=== PATIENT | female | born 2000 | race Caucasian/White ===

== ENCOUNTER 2020-11-15 11:49 | Emergency (ER) | payer OTHER, SELFPAY ==
[2020-11-15 12:00] VITALS: BP 140/64; PULSE 90; RESP 16; TEMP 36.7; O2SAT 98
[2020-11-15 12:15] VITALS: BP 140/64; PULSE 90; RESP 16; TEMP 36.7; O2SAT 98
--- NOTE | 2020-11-15 12:40 | ED.DENTAL ---
HPI - Dental/Oral General Chief complaint: Skin/Abscess/Foreign Body Stated complaint: Blister Time Seen by Provider: 11/15/20 12:31 Source: patient and RN notes reviewed Mode of arrival: ambulatory Limitations: no limitations History of Present Illness HPI Narrative: Patient presents today with a blister to the roof of her mouth x1 week. States it is very painful. Reports it is not growing or shrinking. Reports that possibly her tongue ring had been rubbing friction against the roof of her mouth, causing the area to grow. She has since removed the tongue ring. She has been using Orajel, Tylenol, ibuprofen, and a numbing mouthwash without much relief. Denies history of herpes or cold sores. Related Data Allergies Allergy/AdvReac Type Severity Reaction Status Date / Time Sulfa (Sulfonamide Allergy Unknown EYES SWELL Verified 11/15/20 12:14 Antibiotics) latex Allergy Rash Verified 11/15/20 12:14 Bumble Bee Allergy Unknown CANT Uncoded 05/29/20 13:20 BREATHE Wasp Allergy Unknown CANT Uncoded 05/29/20 13:20 BREATHE Review of Systems Review of Systems: Narrative: CONSTITUTIONAL: Denies body aches, fever, chills, or sweats. EYES: Denies visual changes, redness, or discharge. ENT: Denies rhinorrhea, congestion, sore throat, or otalgia. + mouth sore CARDIOVASCULAR: Denies chest pain, palpitations, or edema. RESPIRATORY: Denies cough or dyspnea. GASTROINTESTINAL: Denies abdominal pain, nausea, vomiting, or diarrhea. GENITOURINARY: Denies dysuria or hematuria. SKIN: Denies rash, itching, or wounds. MUSCULOSKELETAL: Denies back pain, joint pain, or myalgia. NEUROLOGIC: Denies headache, numbness, tingling, or weakness. PSYCH: Denies depression or anxiety. [facility] Past Medical History Medical History (Updated 11/15/20 @ 12:47 by Carmen Harvey, [facility], ) Allergies Anxiety Cyst of right ovary Depression GERD (gastroesophageal reflux disease) H/O migraine Tonsillectomy planned Vaginal delivery 11/07/17 Full term male 7lbs 2oz Surgical History Surgical History H/O adenoidectomy History of ankle surgery History of cholecystectomy Family History Family History Mother Asthma Anxiety GERD (gastroesophageal reflux disease) Migraines Panic attack Father Asthma ADHD Bipolar 1 disorder Grandparent Diabetes mellitus Bipolar 1 disorder Heart disease Lupus Grandparent GERD (gastroesophageal reflux disease) Alzheimer disease Dementia Sibling Autism Bipolar 1 disorder Schizophrenia Social History Social History Smoking status: Never smoker Alcohol intake: current Substance use: never Comments At time of signature, I have reviewed and agree with nursing past medical, surgical, social and family history unless otherwise noted. Please see nursing chart for further information. There is no relevant family history pertinent to the presenting complaint Exam Narrative: Exam Narrative: GENERAL: Well-appearing, well-nourished, and in no acute distress. HEAD: Normocephalic, atraumatic. EYES: EOMI. No redness or drainage. Conjunctivae normal. ENT: Mucous membranes pink and moist. Nares clear. No rhinorrhea. Throat normal. Uvula midline. 3 x 2 cm erythematous ulceration to the roof of the mouth at the hard palate with surrounding 1 x 2 cm area of localized tenderness and edema that is not erythematous. This area does not seem fluctuant. NECK: Normal AROM. Supple. No lymphadenopathy. CHEST: No respiratory distress. Clear to auscultation. HEART: Regular rate and rhythm. No murmur appreciated. Normal peripheral pulses. EXTREMITIES: Normal range of motion. No edema. SKIN: Warm, dry, no rash. Capillary refill normal. Normal skin turgor. NEURO: No focal deficits. Alert and oriented x3. Gait steady. P
== END 2020-11-15 12:52 | disposition home or self-care (01) ==
PROVIDERS: Emergency Provider Nurse Practitioner
DX: K12.0 Recurrent oral aphthae (principal); K21.9 Gastro-esophageal reflux disease without esophagitis
CPT/HCPCS: 99213; G0463

== ENCOUNTER 2020-12-25 10:48 | Emergency (ER) | payer OTHER, SELFPAY ==
--- NOTE | ~2020-12-25 | XR_ITS ---
EXAMINATION: XR ankle LT min 3V EXAM DATE: 12/25/2020 11:21 INDICATION: Initial encounter following injury, with pain of the left ankle. History of surgery for A chilles tendon and prior lateral malleolar fracture. TECHNIQUE: Left ankle frontal, lateral and oblique projections obtained and reviewed. There is no pr ior study for comparison. FINDINGS: The left ankle mortise appears intact. There are no acute fractures or dislocations ident ified. There is no subcutaneous gas. The soft tissue is unremarkable. There are no radiopaque for eign bodies. IMPRESSION: 1. Unremarkable XR ankle LT min 3V exam. Reviewed, dictated and finalized at location B.
--- NOTE | 2020-12-25 10:51 | ED.LOWEXIN ---
HPI - Extremity Injury (Lower) General Chief Complaint: Extremity Injury, Lower Stated Complaint: left knee and ankle injury Time Seen by Provider: 12/25/20 10:51 Source: patient and RN notes reviewed History of Present Illness HPI Narrative: Patient is a 20-year-old female who presents the urgent care with complaints of left knee and left ankle pain. Patient states that she was climbing in the [place] yesterday and slipped and fell on a rock landing on her left knee. Patient states that the knee hurts only with some weightbearing activity however the ankle has had a past severe fracture with 32 stitches due to a laceration. Patient states that it has been swelling off and on ever since the surgery a couple years ago. Patient states it is more painful with weightbearing and flexion. Denies of any use of [id number] medication and states that it just started hurting this morning rather than directly after the fall. No other acute complaints. No other acute injuries from the fall. Denies hitting her head or any loss of consciousness. No acute distress noted. Patient aware of the plan of care. Some parts of this dictation were generated by voice recognition software and may contain typographical and/or grammatical inaccuracies. Related Data Allergies Allergy/AdvReac Type Severity Reaction Status Date / Time Sulfa (Sulfonamide Allergy Unknown EYES SWELL Verified 12/25/20 11:11 Antibiotics) latex Allergy Rash Verified 12/25/20 11:11 Bumble Bee Allergy Unknown CANT Uncoded 05/29/20 13:20 BREATHE Wasp Allergy Unknown CANT Uncoded 05/29/20 13:20 BREATHE Review of Systems Review of Systems: Narrative: CONSTITUTIONAL: Denies fever, chills, or sweats. EYES: Denies visual changes, redness, or discharge. ENT: Denies rhinorrhea, congestion, sore throat, or otalgia. CARDIOVASCULAR: Denies chest pain, palpitations, or edema. RESPIRATORY: Denies cough or dyspnea. GASTROINTESTINAL: Denies abdominal pain, nausea, vomiting, or diarrhea. GENITOURINARY: Denies dysuria or hematuria. SKIN: Denies rash or itching. MUSCULOSKELETAL: Reports of left knee and left ankle pain NEUROLOGIC: Denies headache, numbness, or weakness. All other systems reviewed are negative, except as documented in HPI. [facility] Past Medical History Medical History (Updated 12/25/20 @ 11:35 by MIGUEL Holden) Allergies Anxiety Cyst of right ovary Depression GERD (gastroesophageal reflux disease) H/O migraine Tonsillectomy planned Vaginal delivery 11/07/17 Full term male 7lbs 2oz Surgical History Surgical History H/O adenoidectomy History of ankle surgery History of cholecystectomy Family History Family History Mother Asthma Anxiety GERD (gastroesophageal reflux disease) Migraines Panic attack Father Asthma ADHD Bipolar 1 disorder Grandparent Diabetes mellitus Bipolar 1 disorder Heart disease Lupus Grandparent GERD (gastroesophageal reflux disease) Alzheimer disease Dementia Sibling Autism Bipolar 1 disorder Schizophrenia Social History Social History Smoking status: Never smoker Alcohol intake: current Substance use: never Comments At the time of my signature, I reviewed and agree with the nursing past medical, surgical, social, and family history. There is no relevant family history pertinent to the patient complaint. Exam Narrative: Exam Narrative: GENERAL: This is a well-nourished, well-developed patient, in no apparent distress. HEAD: normocephalic, atraumatic. EYES: PERRL. Sclera clear/white. Vision is grossly intact. EARS: External ears normal NOSE: External nose normal with no obvious nasal discharge, nares without redness, no rhinorrhea. THROAT: Mucous membranes moist NECK: Neck supple SKIN: warm
[2020-12-25 11:01] VITALS: BP 126/68; PULSE 96; RESP 18; TEMP 36.8; O2SAT 100
== END 2020-12-25 11:35 | disposition home or self-care (01) ==
PROVIDERS: Emergency Provider Nurse Practitioner Family
DX: S93.402A Sprain of unspecified ligament of left ankle, initial encounter (principal); W17.89XA Other fall from one level to another, initial encounter; Y93.31 Activity, mountain climbing, rock climbing and wall climbing; K21.9 Gastro-esophageal reflux disease without esophagitis
CPT/HCPCS: 73610; 99213; G0463

== ENCOUNTER 2021-02-27 15:02 | Outpatient (CLI) | payer OTHER, SELFPAY ==
[2021-02-27 19:00] LABS: Basophils Absolute Auto 0.1 K/mm3 (0.0-0.1); Eosinophils Absolute Auto 0.1 K/mm3 (0-0.3); Eosinophils Percent Auto 2.2 % (0-4.4); Hematocrit 42.8 % (37.0-47.0); Hemoglobin 14.7 g/dL (12.0-15.0); Immature Granulocyte Absolute 0.01 K/mm3 (0.00-0.031); Immature Granulocyte Percent A 0.2 % (0-0.5); Lymphocytes Absolute Auto 2.58 K/mm3 (0.9-3.2); Lymphocytes Percent Auto 43.4 % (18.3-44.2); Mean Corpuscular HGB Conc 34.3 g/dl (32-36); Mean Corpuscular Hemoglobin 28.9 pg (26-34); Mean Corpuscular Volume 84.3 fl (80-100); Mean Platelet Volume 9.4 fl (7.4-10.4); Monocytes Absolute Auto 0.4 K/mm3 (0.1-0.6); Monocytes Percent Auto 7.4 % (2.6-8.5); Neutrophils Absolute Auto 2.7 K/mm3 (1.3-6.7); Neutrophils Percent Auto 45.8 % (45.5-73.1); Platelet Count Result 314 k/mm3 (150-375); Red Blood Count 5.08 M/mm3 (4.2-5.4); Red Cell Distribution Width 11.9 % (11.5-14.5); White Blood Count 5.9 K/mm3 (4.5-10.0)
[2021-02-27 19:20] LABS: Alanine Aminotransferase 17 U/L (4-35); Albumin Level 4.5 g/dL (3.5-5.1); Alkaline Phosphatase 87 U/L (38-126); Anion Gap 8 mmol/L (8-16); Aspartate Amino Transferase 21 U/L (14-36); Bilirubin,Total 0.3 mg/dL (0.2-1.3); Blood Urea Nitrogen 8 mg/dL (7-17); Calcium 9.6 mg/dL (8.4-10.2); Carbon Dioxide 24 mmol/L (22-30); Chloride 108 mmol/L (98-107); Cholesterol 148 mg/dL (0-200); Estimated Glomerular Filt Rate > 60; Glucose 97 mg/dL (65-105); HDL Direct 39 mg/dL; Sodium 140 mmol/L (137-145); Triglycerides 82 mg/dL (<150)
[2021-02-27 19:23] LABS: Add Urine Microscopic? YES; Amorphous Sediment Urine Few; Appearance Urine Turbid (Clear); Bacteria Urine 1+ /hpf; Bilirubin Urine Negative (Negative); Blood Urine Negative (Negative); Color Urine Yellow (Yellow); Glucose Urine UA Negative (Negative); Ketones Urine Negative (Negative); Leukocyte Esterase Ur Trace LEU/UL (Negative); Mucus Urine Few /lpf; Nitrate Urine Negative (Negative); Protein Urine Negative (Negative); Specific Grav Ur 1.029 (1.001-1.035); Squamous Epithelial Cell Urine Moderate /hpf (Few); Urobilinogen Urine Negative mg/dL (<2.0)
[2021-02-27 19:31] LABS: LDL Cholesterol Direct 89 mg/dL
[2021-02-27 19:37] LABS: Vitamin D 25 Hydroxy 60.7 ng/mL
== END 2021-02-27 15:03 | disposition home or self-care (01) ==
PROVIDERS: PCP Family Medicine; Visit Provider Family Medicine
DX: J45.909 Unspecified asthma, uncomplicated (principal); Z13.9 Encounter for screening, unspecified; Z00.00 Encounter for general adult medical examination without abnormal findings
CPT/HCPCS: 36415; 80053; 80061; 81001; 82306; 84443; 85025

== ENCOUNTER 2021-03-15 12:08 | Outpatient (CLI) | payer OTHER, MEDICAID, SELFPAY ==
[2021-03-15 19:32] LABS: Add Urine Microscopic? YES; Appearance Urine Cloudy (Clear); Bacteria Urine Trace /hpf; Bilirubin Urine Negative (Negative); Blood Urine Negative (Negative); Calcium Oxalate Crystals Urine Present /hpf; Color Urine Yellow (Yellow); Glucose Urine UA Negative (Negative); Ketones Urine Negative (Negative); Leukocyte Esterase Ur Negative LEU/UL (NEGATIVE); Mucus Urine Few /lpf; Nitrate Urine Negative (Negative); Protein Urine Negative (Negative); RBC Urine 0-2 /hpf (0-2); Specific Grav Ur 1.028 (1.001-1.035); Squamous Epithelial Cell Urine Many /hpf (Few); Urobilinogen Urine Negative mg/dL (<2.0); WBC Urine 0-3 /hpf (0-3)
== END 2021-03-15 12:09 | disposition home or self-care (01) ==
PROVIDERS: PCP Family Medicine; Visit Provider Family Medicine
DX: R82.90 Unspecified abnormal findings in urine (principal)
CPT/HCPCS: 81001; 87077; 87086; 87088; 87186

== ENCOUNTER 2021-05-17 10:50 | Outpatient (CLI) | payer OTHER, MEDICAID, SELFPAY | END 2021-05-17 10:51 | disposition home or self-care (01) | PROVIDERS: PCP Family Medicine; Visit Provider Family Medicine | DX: N39.0 Urinary tract infection, site not specified (principal) | CPT/HCPCS: 87077; 87086; 87088 ==

== ENCOUNTER 2021-06-06 14:16 | Outpatient (CLI) | payer OTHER, MEDICAID, SELFPAY ==
--- NOTE | ~2021-06-06 | XR_ITS ---
XR ankle LT min 3V DATE: 06/06/2021 14:32 INDICATION: Left ankle pain. No recent injury. TECHNIQUE: 4 views COMPARISON: 12/25/2020 left ankle FINDINGS: No fracture or dislocation of the ankle or disruption of the ankle mortise. No periosteal r eaction or bone destruction. The joint space at the ankle is well preserved. IMPRESSION: No significant abnormality Reviewed, dictated and finalized at location B. IMPRESSION: No significant abnormality
== END 2021-06-06 14:17 | disposition home or self-care (01) ==
PROVIDERS: PCP Family Medicine; Visit Provider Family Medicine
DX: M25.572 Pain in left ankle and joints of left foot (principal)
CPT/HCPCS: 73610

== ENCOUNTER 2022-01-27 09:30 | Outpatient (CLI) | payer OTHER, MEDICAID, SELFPAY ==
[2022-01-27 20:19] LABS: Basophils Absolute Auto 0.1 K/mm3 (0.0-0.1); Basophils Percent Auto 1.3 % (0.2-1.2); Eosinophils Absolute Auto 0.2 K/mm3 (0-0.3); Eosinophils Percent Auto 2.8 % (0-4.4); Hematocrit 44.4 % (37.0-47.0); Hemoglobin 14.2 g/dL (12.0-15.0); Immature Granulocyte Absolute 0.01 K/mm3 (0.00-0.031); Immature Granulocyte Percent A 0.2 % (0-0.5); Lymphocytes Absolute Auto 2.07 K/mm3 (0.9-3.2); Lymphocytes Percent Auto 38.9 % (18.3-44.2); Mean Corpuscular Hemoglobin 28.7 pg (26-34); Mean Corpuscular Volume 89.9 fl (80-100); Mean Platelet Volume 9.9 fl (7.4-10.4); Monocytes Absolute Auto 0.5 K/mm3 (0.1-0.6); Neutrophils Absolute Auto 2.5 K/mm3 (1.3-6.7); Neutrophils Percent Auto 47.8 % (45.5-73.1); Platelet Count Result 293 k/mm3 (150-375); Red Blood Count 4.94 M/mm3 (4.2-5.4); Red Cell Distribution Width 12.2 % (11.5-14.5); White Blood Count 5.3 K/mm3 (4.5-10.0)
[2022-01-27 20:24] LABS: Alanine Aminotransferase 27 U/L (6-35); Albumin Level 4.4 g/dL (3.5-5.1); Alkaline Phosphatase 89 U/L (38-126); Anion Gap 7 mmol/L (8-16); Aspartate Amino Transferase 25 U/L (14-36); Bilirubin,Total 0.8 mg/dL (0.2-1.3); Blood Urea Nitrogen 9 mg/dL (7-17); Calcium 9.2 mg/dL (8.4-10.2); Carbon Dioxide 25 mmol/L (22-30); Chloride 105 mmol/L (98-107); Estimated Glomerular Filt Rate > 60; Glucose 89 mg/dL (65-110); Potassium 3.9 mmol/L (3.4-5.0); Sodium 137 mmol/L (137-145)
== END 2022-01-27 09:31 | disposition home or self-care (01) ==
PROVIDERS: PCP Family Medicine; Visit Provider Family Medicine
DX: R20.0 Anesthesia of skin (principal)
CPT/HCPCS: 36415; 80053; 82607; 85025

== ENCOUNTER 2022-03-09 16:07 | Emergency (ER) | payer OTHER, MEDICAID, SELFPAY ==
--- NOTE | ~2022-03-09 | XR_ITS ---
EXAM: XR foot RT min 3V DATE: 03/09/2022 16:35 HISTORY: PICTURE FRAME FELL ON TOP OF RT FOOT 03/09/22. PAIN. . COMPARISON: X-ray ankle 12/13/2018. FINDINGS: Normal mineralization. No fracture or dislocation. No lytic or blastic lesion. Joint space s are maintained. Moderate hallux valgus. No erosion or periosteal change. Soft tissues within normal limits. IMPRESSION: No acute osseous finding in the right foot. Reviewed, dictated and finalized at location K.
--- NOTE | 2022-03-09 16:13 | ED.LOWEXIN ---
HPI - Extremity Injury (Lower) General Chief Complaint: Extremity Injury, Lower Stated Complaint: Right Foot Injury Time Seen by Provider: 03/09/22 16:13 Source: patient and RN notes reviewed History of Present Illness HPI Narrative: Patient is a 21-year-old female who presents the urgent care with complaints of right foot pain. Patient states that a picture frame fell on her foot yesterday and she has been on her feet all day at work. Patient states that she has not done anything for her pain. No other acute complaints. No acute distress noted. Patient aware of the plan of care. Some parts of this dictation were generated by voice recognition software and may contain typographical and/or grammatical inaccuracies. Related Data Allergies Allergy/AdvReac Type Severity Reaction Status Date / Time Sulfa (Sulfonamide Allergy Unknown EYES SWELL Verified 03/09/22 16:22 Antibiotics) latex Allergy Rash Verified 03/09/22 16:22 Bumble Bee Allergy Unknown CANT Uncoded 01/27/22 08:58 BREATHE Wasp Allergy Unknown CANT Uncoded 01/27/22 08:58 BREATHE Review of Systems Review of Systems: CONSTITUTIONAL: Denies fever, chills, or sweats. EYES: Denies visual changes, redness, or discharge. ENT: Denies rhinorrhea, congestion, sore throat, or otalgia. CARDIOVASCULAR: Denies chest pain, palpitations, or edema. RESPIRATORY: Denies cough or dyspnea. GASTROINTESTINAL: Denies abdominal pain, nausea, vomiting, or diarrhea. GENITOURINARY: Denies dysuria or hematuria. SKIN: Denies rash or itching. MUSCULOSKELETAL: Reports of right foot pain NEUROLOGIC: Denies headache, numbness, or weakness. All other systems reviewed are negative, except as documented in HPI. [facility] Past Medical History Medical History Allergies Anxiety Cyst of right ovary Depression GERD (gastroesophageal reflux disease) H/O migraine Tonsillectomy planned Vaginal delivery 11/07/17 Full term male 7lbs 2oz Surgical History Surgical History H/O adenoidectomy History of ankle surgery History of cholecystectomy Family History Family History Mother Asthma Anxiety GERD (gastroesophageal reflux disease) Migraines Panic attack Father Asthma ADHD Bipolar 1 disorder Grandparent Diabetes mellitus Bipolar 1 disorder Heart disease Lupus Grandparent GERD (gastroesophageal reflux disease) Alzheimer disease Dementia Sibling Autism Bipolar 1 disorder Schizophrenia Social History Social History Smoking status: Never smoker Tobacco type: e-cigarettes/vaping Alcohol intake: current Alcohol use details: weekends Substance use: never Comments At the time of my signature, I reviewed and agree with the nursing past medical, surgical, social, and family history. There is no relevant family history pertinent to the patient complaint. Exam Narrative: GENERAL: This is a well-nourished, well-developed patient, in no apparent distress. HEAD: normocephalic, atraumatic. EYES: PERRL. Sclera clear/white. Vision is grossly intact. EARS: External ears normal NOSE: External nose normal with no obvious nasal discharge, nares without redness, no rhinorrhea. THROAT: Mucous membranes moist NECK: Neck supple CARDIOVASCULAR: Regular rate and rhythm without murmurs, gallops, or rubs. RESPIRATORY: Clear to auscultation. Breath sounds equal bilaterally. No wheezes, rales, or rhonchi. SKIN: warm, intact with no suspicious lesions or rash, good texture and turgor. NEURO: awake, alert, and oriented to person, place and time. There were no obvious focal neurologic abnormalities. EXTREMITIES: Mild ecchymosis noted to the right mid dorsal foot with superficial skin abrasion. No obvious deformity or fracture. Range of motion within normal limi
[2022-03-09 16:16] VITALS: BP 120/75; PULSE 80; RESP 14; TEMP 37; O2SAT 100
[2022-03-09 16:23] VITALS: BP 120/75; PULSE 80; RESP 14; TEMP 37; O2SAT 100
== END 2022-03-09 16:54 | disposition home or self-care (01) ==
PROVIDERS: Emergency Provider Nurse Practitioner Family; PCP Family Medicine
DX: S90.31XA Contusion of right foot, initial encounter (principal); W20.8XXA Other cause of strike by thrown, projected or falling object, initial encounter; K21.9 Gastro-esophageal reflux disease without esophagitis
CPT/HCPCS: 73630; 99213; G0463

== ENCOUNTER 2022-03-27 14:14 | Outpatient (CLI) | payer OTHER, MEDICAID, SELFPAY ==
--- NOTE | ~2022-03-27 | CT_ITS ---
EXAMINATION: CT abdomen pelvis wo con DATE: 03/27/2022 14:36 INDICATION: Severe left lower quadrant abdominal pain with hematemesis TECHNIQUE: Computed tomography (CT) of the abdomen and pelvis was performed without intravenous contr ast. Automated exposure control and iterative reconstruction technique were employed. The dose-length product was 611.24 mGy-cm. COMPARISON: None FINDINGS: Minimal dependent atelectasis in the bilateral lower lobes. Heart size is normal. No pericardial or p leural effusion. Cholecystectomy clips the gallbladder fossa with dropped clip along the proximal tra nsverse colon. Liver, spleen, pancreas, bilateral adrenal glands and kidneys are normal. Bowels inclu ding the appendix are normal. Bladder, uterus and bilateral adnexa are unremarkable. Minimal likely p hysiologic free fluid in the cul-de-sac. No abscess or free intraperitoneal gas. No pathologically en larged abdominal or pelvic lymphadenopathy. Bones are unremarkable. IMPRESSION: 1. Minimal likely physiologic free fluid in the cul-de-sac. No acute intra-abdominal/pelvic process. Reviewed, dictated and finalized at location A. IMPRESSION: 1. Minimal likely physiologic free fluid in the cul-de-sac. No acute intra-abdo rachid/pelvic process.
== END 2022-03-27 14:15 | disposition home or self-care (01) ==
PROVIDERS: PCP Family Medicine; Visit Provider Family Medicine
DX: K92.0 Hematemesis (principal); R10.32 Left lower quadrant pain
CPT/HCPCS: 74176

== ENCOUNTER 2022-05-15 14:32 | Emergency (ER) | payer MEDICAID, SELFPAY ==
--- NOTE | 2022-05-15 14:37 | ED.DIZZY ---
HPI - Dizziness General Chief Complaint: Dizziness Stated Complaint: dizzy light headed and sob Time Seen by Provider: 05/15/22 14:38 Source: patient and RN notes reviewed History of Present Illness HPI Narrative: Patient is a 22-year-old female who presents the urgent care with complaints of lightheadedness, dizziness, cough, runny nose, mild sore throat and epigastric pain. Patient states that symptoms started 3 days ago and she is concerned of COVID considering she lives with her grandmother father. Patient denies of any nausea or vomiting. States that she has had low-grade fevers. Patient has been using Tylenol cold and flu medication as well as ibuprofen. Denies any ill exposures. No other acute complaints. No acute distress noted. Patient aware of the plan of care. Some parts of this dictation were generated by voice recognition software and may contain typographical and/or grammatical inaccuracies. Related Data Allergies Allergy/AdvReac Type Severity Reaction Status Date / Time Sulfa (Sulfonamide Allergy Unknown EYES SWELL Verified 05/15/22 14:46 Antibiotics) grass pollen Allergy Hives Verified 05/15/22 14:46 latex Allergy Rash Verified 05/15/22 14:46 Bumble Bee Allergy Unknown CANT Uncoded 05/15/22 14:46 BREATHE Wasp Allergy Unknown CANT Uncoded 05/15/22 14:46 BREATHE Review of Systems Review of Systems: CONSTITUTIONAL: Reports a fever EYES: Denies visual changes, redness, or discharge. ENT: Reports of congestion, rhinorrhea, mild sore throat CARDIOVASCULAR: Denies chest pain, palpitations, or edema. RESPIRATORY: Denies cough or dyspnea. GASTROINTESTINAL: Reports of epigastric pain GENITOURINARY: Denies dysuria or hematuria. SKIN: Denies rash or itching. MUSCULOSKELETAL: Denies back pain, joint pain, or myalgia. NEUROLOGIC: Denies headache, numbness, or weakness. Reports of dizziness All other systems reviewed are negative, except as documented in HPI. [facility] Past Medical History Medical History Allergies Anxiety Cyst of right ovary Depression GERD (gastroesophageal reflux disease) H/O migraine Tonsillectomy planned Vaginal delivery 11/07/17 Full term male 7lbs 2oz Surgical History Surgical History H/O adenoidectomy History of ankle surgery History of cholecystectomy Family History Family History Mother Asthma Anxiety GERD (gastroesophageal reflux disease) Migraines Panic attack Father Asthma ADHD Bipolar 1 disorder Grandparent Diabetes mellitus Bipolar 1 disorder Heart disease Lupus Grandparent GERD (gastroesophageal reflux disease) Alzheimer disease Dementia Sibling Autism Bipolar 1 disorder Schizophrenia Social History Social History Smoking status: Never smoker Tobacco type: e-cigarettes/vaping Alcohol intake: current Alcohol use details: weekends Substance use: never Comments At the time of my signature, I reviewed and agree with the nursing past medical, surgical, social, and family history. There is no relevant family history pertinent to the patient complaint. Exam Narrative: GENERAL: This is a well-nourished, well-developed patient, in no apparent distress. HEAD: normocephalic, atraumatic. EYES: PERRL. Sclera clear/white. Vision is grossly intact. EARS: External ears normal, auditory canals clear and without drainage, TMs normal without perforation. Hearing grossly intact. NOSE: External nose normal with no obvious nasal discharge, nares without redness, no rhinorrhea. THROAT: Mucous membranes moist, posterior pharynx clear. Mild postnasal drainage NECK: Neck supple, non-tender without lymphadenopathy CARDIOVASCULAR: Regular rate and rhythm without murmurs, gallops, or rubs. RESPIRATORY: Clear to auscultation. B
[2022-05-15 14:39] VITALS: BP 115/74; PULSE 82; RESP 18; TEMP 36.8; O2SAT 100
[2022-05-15 18:51] LABS: SARS-CoV-2 RNA PCR Negative
== END 2022-05-15 15:17 | disposition home or self-care (01) ==
PROVIDERS: Emergency Provider Nurse Practitioner Family; PCP Family Medicine
DX: R10.13 Epigastric pain (principal); J06.9 Acute upper respiratory infection, unspecified; Z20.822 Contact with and (suspected) exposure to COVID-19; K21.9 Gastro-esophageal reflux disease without esophagitis
CPT/HCPCS: 87804; 99213; C9803; G0463; U0003; U0005

== ENCOUNTER 2022-08-27 15:24 | Outpatient (CLI) | payer OTHER, SELFPAY ==
--- NOTE | ~2022-08-27 | XR_ITS ---
XR abdomen obstructive series DATE: 08/27/2022 15:34 INDICATION: Left lower quadrant abdominal pain for 4 days, radiating to back TECHNIQUE: Supine and upright AP views of the abdomen COMPARISON: 03/27/2022 CT abdomen pelvis FINDINGS: Surgical clips, right upper quadrant, consistent with cholecystectomy. No evidence of bowel obstruction or intraperitoneal free air. The psoas shadows are intact. No viscer omegaly is evident. There is mild dextroscoliosis of the lower thoracic and lumbar spine. IMPRESSION: Status post cholecystectomy No evidence of bowel obstruction or free air Reviewed, dictated and finalized at Location A. Reviewed, dictated and finalized at location B. H PRESS FEEDER
== END 2022-08-27 15:25 | disposition home or self-care (01) ==
LOC: ANHBWCIMG 15:25
PROVIDERS: PCP Family Medicine; Visit Provider Family Medicine
DX: R10.32 Left lower quadrant pain (principal)
CPT/HCPCS: 74019

== ENCOUNTER 2022-09-18 13:31 | Outpatient (CLI) | payer OTHER, SELFPAY ==
--- NOTE | ~2022-09-18 | XR_ITS ---
EXAMINATION: XR chest 2V 09/18/2022 13:55 INDICATION: Chronic GI issues. Dyspnea. PROCEDURE: PA and lateral views of the chest COMPARISON: No prior studies for comparison. FINDINGS: The lungs are clear. The cardiomediastinal silhouette is within normal limits. There are no pleural effusions. There is no pneumothorax suspected. IMPRESSION: 1: NO ACUTE CARDIOPULMONARY DISEASE. Reviewed, dictated and finalized at location A. TH AND SAFETY REPRESENTATIVE
--- NOTE | ~2022-09-18 | XR_ITS ---
EXAMINATION: XR abdomen obstructive series DATE: 09/18/2022 13:55 INDICATION: Chronic GI issues. TECHNIQUE: Supine and upright views of the abdomen. FINDINGS: 08/27/2022 The visualized lung parenchyma is normal.. There is a nonobstructive bowel gas pattern. Gas and stool are seen throughout the colon to the level of the rectum. There is no free air. Moderate colonic fe froilan loading. There are cholecystectomy clips. IMPRESSION: 1. No acute abdominal abnormality. Reviewed, dictated and finalized at location A. HT NURSE
[2022-09-18 20:25] LABS: Alanine Aminotransferase 30 U/L (6-35); Albumin Level 4.3 g/dL (3.5-5.1); Alkaline Phosphatase 90 U/L (38-126); Anion Gap 7 mmol/L (8-16); Aspartate Amino Transferase 33 U/L (14-36); Bilirubin,Total 0.5 mg/dL (0.2-1.3); Blood Urea Nitrogen 9 mg/dL (7-17); Calcium 8.9 mg/dL (8.4-10.2); Carbon Dioxide 27 mmol/L (22-30); Chloride 105 mmol/L (98-107); Estimated Glomerular Filt Rate > 60; Glucose 100 mg/dL (65-110); Lipase 77 U/L (23-300); Potassium 4.1 mmol/L (3.4-5.0); Sodium 139 mmol/L (137-145)
[2022-09-18 20:38] LABS: SPREG INTERNAL CONTROL Positive; Serum Qual hCG Negative
== END 2022-09-18 13:32 | disposition home or self-care (01) ==
LOC: ANHBWCLAB 13:32
PROVIDERS: PCP Family Medicine; Visit Provider Family Medicine
DX: R10.32 Left lower quadrant pain (principal); Z87.19 Personal history of other diseases of the digestive system; K92.0 Hematemesis
CPT/HCPCS: 36415; 71046; 74019; 80053; 83690; 84703

== ENCOUNTER 2023-01-07 07:45 | Outpatient (CLI) | payer OTHER, SELFPAY ==
[2023-01-07 19:46] LABS: Basophils Absolute Auto 0.1 K/mm3 (0.0-0.1); Basophils Percent Auto 1.1 % (0.2-1.2); Eosinophils Absolute Auto 0.2 K/mm3 (0-0.3); Eosinophils Percent Auto 2.8 % (0-4.4); Hemoglobin 14.8 g/dL (12.0-15.0); Immature Granulocyte Absolute 0.01 K/mm3 (0.00-0.031); Immature Granulocyte Percent A 0.2 % (0-0.5); Lymphocytes Absolute Auto 2.96 K/mm3 (0.9-3.2); Lymphocytes Percent Auto 46.1 % (18.3-44.2); Mean Corpuscular HGB Conc 32.9 g/dl (32-36); Mean Corpuscular Hemoglobin 29.3 pg (26-34); Mean Corpuscular Volume 89.1 fl (80-100); Mean Platelet Volume 9.4 fl (7.4-10.4); Monocytes Absolute Auto 0.4 K/mm3 (0.1-0.6); Monocytes Percent Auto 6.9 % (2.6-8.5); Neutrophils Absolute Auto 2.8 K/mm3 (1.3-6.7); Neutrophils Percent Auto 42.9 % (45.5-73.1); Platelet Count Result 331 k/mm3 (150-375); Red Blood Count 5.05 M/mm3 (4.2-5.4); Red Cell Distribution Width 12.5 % (11.5-14.5); White Blood Count 6.4 K/mm3 (4.5-10.0)
[2023-01-07 20:59] LABS: LDL Cholesterol Direct 89 mg/dL
[2023-01-07 21:11] LABS: Alanine Aminotransferase 23 U/L (6-35); Albumin Level 4.5 g/dL (3.5-5.1); Alkaline Phosphatase 86 U/L (38-126); Anion Gap 9 mmol/L (8-16); Aspartate Amino Transferase 68 U/L (14-36); Bilirubin,Total 0.6 mg/dL (0.2-1.3); Blood Urea Nitrogen 13 mg/dL (7-17); Calcium 9.1 mg/dL (8.4-10.2); Carbon Dioxide 28 mmol/L (22-30); Chloride 105 mmol/L (98-107); Cholesterol 150 mg/dL (0-200); Estimated Glomerular Filt Rate > 60; Glucose 85 mg/dL (65-110); HDL Direct 43 mg/dL; Potassium 3.8 mmol/L (3.4-5.0); Sodium 142 mmol/L (137-145); Triglycerides 74 mg/dL (<150)
== END 2023-01-07 07:46 | disposition home or self-care (01) ==
LOC: ANHBWCLAB 07:46
PROVIDERS: PCP Family Medicine; Visit Provider Nurse Practitioner
DX: G43.909 Migraine, unspecified, not intractable, without status migrainosus (principal); J45.909 Unspecified asthma, uncomplicated; R11.0 Nausea; E66.9 Obesity, unspecified; R53.83 Other fatigue; K21.9 Gastro-esophageal reflux disease without esophagitis; F41.9 Anxiety disorder, unspecified; Z13.9 Encounter for screening, unspecified
CPT/HCPCS: 36415; 80053; 80061; 84443; 85025

== ENCOUNTER 2023-04-07 13:39 | Outpatient (CLI) | payer OTHER, SELFPAY ==
--- NOTE | ~2023-04-07 | XR_ITS ---
EXAMINATION: XR ankle LT 2V DATE: 04/07/2023 13:53 INDICATION: Left ankle pain. TECHNIQUE: 2 views of left ankle were obtained. COMPARISON: Left ankle radiographs 06/06/2021 FINDINGS: Bone alignment is normal. No fracture. Joint spaces are normal. IMPRESSION: 1. Normal left ankle. Reviewed, dictated and finalized at location A. IMPRESSION: 1. Normal left ankle.
[2023-04-13 04:53] LABS: Immunoglobulin A 64 mg/dL (47-310); TTG IGA AB <1.0 U/mL (<15.0)
== END 2023-04-07 13:40 | disposition home or self-care (01) ==
LOC: ANHBWCLAB 13:40
PROVIDERS: PCP Nurse Practitioner Adult Health; Visit Provider Nurse Practitioner Adult Health
DX: M25.572 Pain in left ankle and joints of left foot (principal); K21.9 Gastro-esophageal reflux disease without esophagitis; K90.49 Malabsorption due to intolerance, not elsewhere classified
CPT/HCPCS: 36415; 73600; 82784; 86003; 86364

== ENCOUNTER 2023-05-06 08:51 | Outpatient (CLI) | payer OTHER, SELFPAY ==
--- NOTE | ~2023-05-06 | XR_ITS ---
XR knee RT 3V 05/06/2023 09:02 INDICATION: Right knee pain for 2 weeks. Bruising. No known injury. PROCEDURE: 3 views right knee COMPARISON: No prior studies for comparison. FINDINGS: Fracture, dislocation or subluxation is not identified. No significant joint effusion. The soft tissues appear within normal limits. No foreign bodies are identified. IMPRESSION: 1: NO ACUTE BONE OR JOINT ABNORMALITY IDENTIFIED. Reviewed, dictated and finalized at location B.
== END 2023-05-06 08:52 | disposition home or self-care (01) ==
PROVIDERS: PCP Nurse Practitioner Adult Health; Visit Provider Nurse Practitioner Adult Health
DX: M25.561 Pain in right knee (principal)
CPT/HCPCS: 73562

== ENCOUNTER 2023-05-30 14:03 | Emergency (ER) | payer OTHER, SELFPAY ==
[2023-05-30 14:15] VITALS: BP 126/79; PULSE 93; RESP 18; TEMP 37.3; O2SAT 98
--- NOTE | 2023-05-30 14:49 | ED.GENADULT ---
HPI - General Adult General Chief complaint: Upper Respiratory Infection Stated complaint: congestion/sob/aches and pains Source: patient Mode of arrival: ambulatory Limitations: no limitations History of Present Illness HPI narrative: Patient presents for evaluation of sick symptoms for last 3-4 days. Symptoms include cough, headache, generalized body aches, ear pressure, sore throat, nausea, sinus congestion, rhinorrhea and tearing of the eyes. Denies fever. No recent sick contacts to her knowledge. She has some chronic left ear pain, not worse from her baseline. She has tried taking several lyhm-bdf-hzxrjrx cough and cold medications without considerable improvement thereafter. Related Data Allergies Allergy/AdvReac Type Severity Reaction Status Date / Time Sulfa (Sulfonamide Allergy Unknown EYES SWELL Verified 05/30/23 14:19 Antibiotics) grass pollen Allergy Hives Verified 05/30/23 14:19 latex Allergy Rash Verified 05/30/23 14:19 Bumble Bee Allergy Unknown CANT Uncoded 05/06/23 08:39 BREATHE Wasp Allergy Unknown CANT Uncoded 05/06/23 08:39 BREATHE Review of Systems Review of Systems: CONSTITUTIONAL: Denies fever, chills, or sweats. EYES: Reports watering in the eyes. Denies visual changes and redness ENT: Reports sinus congestion, mild sore throat and rhinorrhea. CARDIOVASCULAR: Denies chest pain, palpitations, or edema. RESPIRATORY: Reports cough. Denies SOB GASTROINTESTINAL: Reports nausea. Denies abdominal pain, vomiting, or diarrhea. GENITOURINARY: Denies dysuria or hematuria. SKIN: Denies rash or itching. MUSCULOSKELETAL:Reports generalized body aches NEUROLOGIC:Reports headache. Denies numbness, dizziness, or weakness. PSYCHIATRIC: Denies anxiety or depression. [facility] Past Medical History Medical History Allergies Anxiety Cyst of right ovary Depression GERD (gastroesophageal reflux disease) H/O migraine Tonsillectomy planned Vaginal delivery 11/07/17 Full term male 7lbs 2oz Surgical History Surgical History H/O adenoidectomy History of ankle surgery History of cholecystectomy Family History Family History Mother Asthma Anxiety GERD (gastroesophageal reflux disease) Migraines Panic attack Father Asthma ADHD Bipolar 1 disorder Grandparent Diabetes mellitus Bipolar 1 disorder Heart disease Lupus Grandparent GERD (gastroesophageal reflux disease) Alzheimer disease Dementia Sibling Autism Bipolar 1 disorder Schizophrenia Social History Social History Smoking status: Current every day smoker Tobacco type: e-cigarettes/vaping Alcohol intake: current Alcohol use details: weekends Substance use: never Lack of Transportation: No Lack of Food: Never True Current Housing: I Have Housing Concerned About Future Housing: No Difficulty Paying Gas/Electric Bills: No Difficulty Paying for Meds: No Currently Unemployed: No Education: High School Diploma/GED Difficulty w/ Childcare or Family Care: No Living arrangements: with family Gender identity (if verbalized by the patient): Female Exam Narrative: GENERAL: Well-appearing, well-nourished, and in no acute distress. HEAD: Normocephalic, atraumatic. EYES: PERRLA and EOMI. ENT: Nares clear, no rhinorrhea or epistaxis. Mucous membranes moist. Oropharynx without tonsillar hypertrophy exudate or other lesions. Bilateral TMs pearly delgadillo nonbulging NECK: Supple. No adenopathy or masses. No carotid bruits or JVD CHEST: Clear to auscultation. No respiratory distress. No wheezes rales or rhonchi HEART: Regular rate and rhythm. No murmur heard. Normal peripheral pulses. ABDOMEN: Soft, nontender, nondistended, normal active bowel sounds.
== END 2023-05-30 15:35 | disposition home or self-care (01) ==
PROVIDERS: Emergency Provider Nurse Practitioner; PCP Family Medicine
DX: B34.9 Viral infection, unspecified (principal); Z20.822 Contact with and (suspected) exposure to COVID-19; K21.9 Gastro-esophageal reflux disease without esophagitis
CPT/HCPCS: 87081; 87426; 87804; 87880; 99213; C9803; G0463

== ENCOUNTER 2023-08-21 08:20 | Emergency (ER) | payer OTHER, SELFPAY ==
[2023-08-21 08:25] VITALS: BP 130/77; PULSE 98; RESP 18; TEMP 36.6; O2SAT 99
--- NOTE | 2023-08-21 08:32 | ED.GENADULT ---
HPI - General Adult General Chief complaint: Upper Respiratory Infection Stated complaint: nausea/dizzy/chest pain Time Seen by Provider: 08/21/23 08:33 Source: patient and RN notes reviewed Mode of arrival: ambulatory Limitations: no limitations History of Present Illness HPI narrative: 23-year-old female presents concern for 3 day history of vomiting throughout the day. She reports she has been having upper abdominal pain, bilateral. Reports the abdominal pain is constant and feels like she is getting punched in the stomach?. She reports history of pancreatitis as a child. She reports last year she was hospitalized for ?stomach issues?. She reports chills and sweats, has not taken her temperature. She reports taking a pill her grandpa gave her that helped her vomiting. She reports rhinorrhea, otherwise denies cough, sore throat, nasal congestion. She reports history of cholecystectomy, denies other abdominal surgeries. Related Data Allergies Allergy/AdvReac Type Severity Reaction Status Date / Time Sulfa (Sulfonamide Allergy Unknown EYES SWELL Verified 08/05/23 15:07 Antibiotics) grass pollen Allergy Hives Verified 08/05/23 15:07 latex Allergy Rash Verified 08/05/23 15:07 Bumble Bee Allergy Unknown CANT Uncoded 08/05/23 15:07 BREATHE Wasp Allergy Unknown CANT Uncoded 08/05/23 15:07 BREATHE Review of Systems Review of Systems: CONSTITUTIONAL: Reports chills, sweats ENT: Reports rhinorrhea. Denies congestion, sinus pain, otalgia or sore throat. CARDIOVASCULAR: Denies chest pain, palpitations, or edema. RESPIRATORY: Denies cough or dyspnea. GASTROINTESTINAL: Reports epigastric, upper abdominal pain, nausea, vomiting. Denies diarrhea, bloody or mucous stools. GENITOURINARY: Denies dysuria or hematuria. MUSCULOSKELETAL: Denies myalgia. NEUROLOGIC: Denies headache. All systems reviewed & are unremarkable except as noted in HPI and below PMFSH Past Medical History Medical History Allergies Anxiety Cyst of right ovary Depression GERD (gastroesophageal reflux disease) H/O migraine Tonsillectomy planned Vaginal delivery 11/07/17 Full term male 7lbs 2oz Surgical History Surgical History H/O adenoidectomy History of ankle surgery History of cholecystectomy Family History Family History Mother Asthma Anxiety GERD (gastroesophageal reflux disease) Migraines Panic attack Father Asthma ADHD Bipolar 1 disorder Grandparent Diabetes mellitus Bipolar 1 disorder Heart disease Lupus Grandparent GERD (gastroesophageal reflux disease) Alzheimer disease Dementia Sibling Autism Bipolar 1 disorder Schizophrenia Social History Social History Smoking status: Current every day smoker Tobacco type: e-cigarettes/vaping Alcohol intake: current Alcohol use details: weekends Substance use: never Lack of Transportation: No Lack of Food: Never True Current Housing: I Have Housing Concerned About Future Housing: No Difficulty Paying Gas/Electric Bills: No Difficulty Paying for Meds: No Currently Unemployed: No Education: High School Diploma/GED Difficulty w/ Childcare or Family Care: No Living arrangements: with family Gender identity (if verbalized by the patient): Female Comments At time of signature, agree with nursing past medical, surgical, social and family history. There is no relevant family history pertinent to the presenting complaint Exam Narrative: GENERAL: Nontoxic-appearing, well-nourished, and in no acute distress. HEAD: Normocephalic, atraumatic. EYES: PERRLA, conjunctivae clear, and EOMI. ENT: Nares clear. Mucous membranes moist. NECK: Supple. No lymphadenopathy CHEST: Speaks in full se
[2023-08-21] MEDS: ONDANSETRON HCL ODT 4 MG TABLET PO (08:44)
== END 2023-08-21 08:57 | disposition short-term general hospital (02) ==
LOC: EXPBETH 08:22
PROVIDERS: Emergency Provider Nurse Practitioner; PCP Family Medicine
DX: R10.9 Unspecified abdominal pain (principal); R11.10 Vomiting, unspecified; F17.290 Nicotine dependence, other tobacco product, uncomplicated; K21.9 Gastro-esophageal reflux disease without esophagitis
CPT/HCPCS: 81003; 99213; A9270; G0463

== ENCOUNTER 2024-01-12 14:11 | Outpatient (CLI) | payer OTHER, SELFPAY ==
[2024-01-12 18:47] LABS: Hemoglobin 15.1 g/dL (12.0-15.0); Mean Corpuscular HGB Conc 32.8 g/dl (32-36); Mean Corpuscular Hemoglobin 29.3 pg (26-34); Mean Corpuscular Volume 89.1 fl (80-100); Mean Platelet Volume 10.1 fl (7.4-10.4); Platelet Count Result 291 k/mm3 (150-375); Red Blood Count 5.16 M/mm3 (4.2-5.4); Red Cell Distribution Width 11.9 % (11.5-14.5); White Blood Count 5.2 K/mm3 (4.5-10.0)
[2024-01-12 19:02] LABS: Alanine Aminotransferase 33 U/L (6-35); Albumin Level 4.9 g/dL (3.5-5.1); Alkaline Phosphatase 68 U/L (38-126); Anion Gap 8 mmol/L (4-12); Aspartate Amino Transferase 72 U/L (14-36); Bilirubin,Total 0.6 mg/dL (0.2-1.3); Blood Urea Nitrogen 7 mg/dL (7-17); Calcium 9.4 mg/dL (8.4-10.2); Carbon Dioxide 25 mmol/L (22-30); Chloride 109 mmol/L (98-107); Cholesterol 131 mg/dL (0-200); Estimated Glomerular Filt Rate > 60; Glucose 110 mg/dL (65-110); HDL Direct 29 mg/dL; Sodium 142 mmol/L (137-145); Triglycerides 140 mg/dL (<150)
[2024-01-12 19:14] LABS: LDL Cholesterol Direct 77 mg/dL
[2024-01-12 19:28] LABS: Thyroid Stimulating Hormone 0.474 uIU/mL (0.465-4.680)
== END 2024-01-12 14:12 | disposition home or self-care (01) ==
LOC: ANHBWCLAB 14:13
PROVIDERS: PCP Nurse Practitioner Adult Health; Visit Provider Nurse Practitioner Adult Health
DX: Z13.9 Encounter for screening, unspecified (principal)
CPT/HCPCS: 36415; 80053; 80061; 84443; 85027

== ENCOUNTER 2024-02-23 10:32 | Outpatient (CLI) | payer OTHER, SELFPAY ==
[2024-02-23 19:50] LABS: Appearance Urine Turbid (Clear); Bacteria Urine 4+ /hpf; Blood Urine 3+ (Negative); Calcium Oxalate Crystals Urine Present /hpf; Color Urine Orange (Yellow); Glucose Urine UA Negative (Negative); Ketones Urine Negative (Negative); Leukocyte Esterase Ur 3+ LEU/UL (Negative); Need Manual Microscopic Reviewed; Protein Urine 2+ mg/dL (Negative); RBC Urine 51-100 /hpf (0-2); Specific Grav Ur 1.019 (1.001-1.035); Squamous Epithelial Cell Urine Many /hpf (Few); WBC Urine >100 /hpf (0-3); pH Urine 5.5 (5.0-9.0)
[2024-02-23 19:52] LABS: Add Urine Microscopic? YES
== END 2024-02-23 10:33 | disposition home or self-care (01) ==
LOC: ANHBWCLAB 10:33
PROVIDERS: PCP Nurse Practitioner Adult Health; Visit Provider Nurse Practitioner Adult Health
DX: R39.9 Unspecified symptoms and signs involving the genitourinary system (principal)
CPT/HCPCS: 81001; 87077; 87086; 87088; 87186

== ENCOUNTER 2024-12-13 10:08 | Outpatient (CLI) | payer OTHER, SELFPAY ==
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
--- OUTSIDE RECORDS SUMMARY | 2024-12-13 11:40 | XMS_ITS | Referral Summary ---
Author Organization [facility] Address [address] [place] [address] Care Team Providers Care Ethnology Teacher Name Role Phone Daniel Mcqueen MD Primary Care Provider [phone] Allergies Active Allergy Reactions Criticality Noted Date [...] (07/01/2018): Added automatically from request for surgery [id number] Assessment & Plan (10/27/2018 3:32 PM HEAT TREAT PULLER): The patient previously had constipation but since last March has been having 6 formed stools per day. There has been no bleeding. A colonoscopy is recommended to clarify the diagnosis and guide therapy. The risks, benefits, and alternatives were discussed with the patient and she agrees to proceed. Left lower quadrant pain 07/01/2018 Overview (07/01/2018): Added automatically from request for surgery [id number] Assessment & Plan (10/27/2018 3:33 PM HEAT TREAT PULLER): This has been associated with a change [...] 09/03/2022 MMR 11/09/2017(Deferred: - not neede d) Social History Tobacco Use Types Packs/Day Years [...] on file Legal Sex Female 12:42 AM HEAT TREAT PULLER Gender Identity Not on file Sexual Orientation Not on file Occupation Industry Job Start Date Job End Date Student - [email or web address] Not on file Not on file Not on file Last Filed Vital Signs Vital Sign Reading Time Taken Comments Blood Pressure 127/85 08/25/2024 2:28 PM HEAT TREAT PULLER Pulse 97 08/25/2024 2:28 PM HEAT TREAT PULLER Temperature 36.9 C (98.4 F) 09/04/2023 12:52 AM HEAT TREAT PULLER Respiratory Rate 20 09/04/2023 3:30 AM HEAT TREAT PULLER Oxygen Saturation 97% 08/25/2024 2:28 PM HEAT TREAT PULLER Inhaled Oxygen Concentration - - Weight 79.3 kg (174 lb 12.8 oz) 08/25/2024 2:28 PM HEAT TREAT PULLER Height 157.5 cm (5' 2 ) 08/25/2024 2:28 PM HEAT TREAT PULLER Body Mass Index 31.97 08/25/2024 2:28 PM HEAT TREAT PULLER Plan of Treatment Not on file Procedures Procedure Name Priority Date/Time Associated Diagnosis Comments HEPATITIS C RNA, QUANTITATIVE, PCR Routine 06/19/2020 2:08 PM CDT from Last 3 Months or Most Recently Relevant to Health Maintenance Results * Hepatitis C (HCV) RNA PCR, quantitative (06/19/2020 2:08 PM CDT) [facility] Signature HCV RNA result Not Detected LADI COLLIER (SYLVIA) Comment: Interpretive data: The quantifiable range of this assay is 15 IU/mL to 100,000,000 IU/mL (1.18 log IU/mL to 8.00 log IU/mL). Testing was performed by the JONATHAN AmpliPrep/JONATHAN TaqMan HCV Test version 2.0 ([employer] Testing performed at [facility] Current Interpretive Data was last revised on 2015. Testing performed by: [facility], [address] [place]., [address] Blood specimen (specimen) 06/19/2020 2:08 PM CDT 06/19/2020 11:27 PM CDT us Tenisha Jones MD LAB MICROBIOLOGY - [facility] AL ORDERABLES Final Result ANJUM COLLIER (SYLVIA) [address] [facility] [place] [address] from Last 3 Months or Most Recently Relevant to Health Maintenance [place] [place] [address] MEDICAID [facility] Advance Directives For more information, please contact: [phone] * Full Code (Latest Code Status on [...] in case of cardiopulmonary arrest Care Teams Ethnology Teacher Relationship Specialty Start Date End Date Daniel Mcqueen MD PCP - General Family Practice 08/30/22
[2024-12-13 19:38] LABS: Basophils Absolute Auto 0.1 K/mm3 (0.0-0.1); Basophils Percent Auto 0.5 % (0.2-1.2); Eosinophils Absolute Auto 0.2 K/mm3 (0-0.3); Eosinophils Percent Auto 1.6 % (0-4.4); Hematocrit 44.7 % (37.0-47.0); Hemoglobin 14.2 g/dL (12.0-15.0); Immature Granulocyte Absolute 0.04 K/mm3 (0.00-0.031); Immature Granulocyte Percent A 0.4 % (0-0.5); Lymphocytes Absolute Auto 2.03 K/mm3 (0.9-3.2); Lymphocytes Percent Auto 21.3 % (18.3-44.2); Mean Corpuscular HGB Conc 31.8 g/dl (32-36); Mean Corpuscular Hemoglobin 29.3 pg (26-34); Mean Corpuscular Volume 92.2 fl (80-100); Mean Platelet Volume 9.6 fl (7.4-10.4); Monocytes Absolute Auto 0.6 K/mm3 (0.1-0.6); Monocytes Percent Auto 6.6 % (2.6-8.5); Neutrophils Absolute Auto 6.7 K/mm3 (1.3-6.7); Neutrophils Percent Auto 69.6 % (45.5-73.1); Platelet Count Result 280 k/mm3 (150-375); Red Blood Count 4.85 M/mm3 (4.2-5.4); Red Cell Distribution Width 12.2 % (11.5-14.5); White Blood Count 9.6 K/mm3 (4.5-10.0)
[2024-12-13 19:47] LABS: Alanine Aminotransferase 26 U/L (6-35); Albumin Level 4.5 g/dL (3.5-5.1); Alkaline Phosphatase 82 U/L (38-126); Amylase 78 U/L (30-110); Anion Gap 10 mmol/L (4-12); Aspartate Amino Transferase 37 U/L (14-36); Bilirubin,Total 0.4 mg/dL (0.2-1.3); Blood Urea Nitrogen 10 mg/dL (7-17); Calcium 9.2 mg/dL (8.4-10.2); Carbon Dioxide 25 mmol/L (22-30); Chloride 106 mmol/L (98-107); Estimated Glomerular Filt Rate > 60; Glucose 90 mg/dL (65-110); Lipase 72 U/L (23-300); Potassium 4.2 mmol/L (3.4-5.0); Sodium 141 mmol/L (137-145)
== END 2024-12-13 10:09 | disposition home or self-care (01) ==
PROVIDERS: PCP Nurse Practitioner Adult Health; Visit Provider Nurse Practitioner Adult Health
DX: R10.9 Unspecified abdominal pain (principal)
CPT/HCPCS: 36415; 80053; 82150; 83690; 85025

== ENCOUNTER 2024-12-13 10:59 | Outpatient (CLI) | payer OTHER, SELFPAY ==
--- NOTE | ~2024-12-13 | CT_ITS ---
EXAMINATION: CT abdomen pelvis wo con DATE: 12/13/2024 11:22 INDICATION: Periumbilical abdominal pain and tenderness TECHNIQUE: Computed tomography (CT) of the abdomen and pelvis was performed without intravenous contr ast. Automated exposure control and iterative reconstruction technique were employed. The dose-length product was 590.76 mGy-cm. COMPARISON: None FINDINGS: Mild dependent atelectasis in bilateral lower lobes. Heart size is normal. No pericardial or pleural effusion. Cholecystectomy clips the gallbladder fossa with dropped clip along the caudal right hepati c lobe. Liver, spleen, pancreas, bilateral adrenal glands and kidneys are normal. Bowels including th e appendix are normal. Bladder, anteverted uterus and bilateral adnexa are unremarkable. No free intr aperitoneal gas or fluid. No pathologically enlarged abdominal or pelvic lymphadenopathy. Small bone island in the left innominate bone near the sacroiliac joint. IMPRESSION: 1. Normal appendix and status post cholecystectomy. No acute intra-abdominal/pelvic process. Reviewed, dictated and finalized at location A. IMPRESSION: 1. Normal appendix and status post cholecystectomy. No acute intra-abdominal/pe lvic process.
--- OUTSIDE RECORDS SUMMARY | 2024-12-13 12:54 | XMS_ITS | Referral Summary ---
Author Organization [facility] Address [address] [place] [address] Care Team Providers Care Top Ironer Name Role Phone Daniel Mcqueen MD Primary Care Provider [phone] Allergies Active Allergy Reactions Criticality Noted Date [...] (07/01/2018): Added automatically from request for surgery [id number] Assessment & Plan (10/27/2018 3:32 PM SHOE HANDLER): The patient previously had constipation but since last March has been having 6 formed stools per day. There has been no bleeding. A colonoscopy is recommended to clarify the diagnosis and guide therapy. The risks, benefits, and alternatives were discussed with the patient and she agrees to proceed. Left lower quadrant pain 07/01/2018 Overview (07/01/2018): Added automatically from request for surgery [id number] Assessment & Plan (10/27/2018 3:33 PM SHOE HANDLER): This has been associated with a change [...] on file Legal Sex Female 12:42 AM SHOE HANDLER Gender Identity Not on file Sexual Orientation Not on file Occupation Industry Job Start Date Job End Date Student - [employer] Not on file Not on file Not on file Last Filed Vital Signs Vital Sign Reading Time Taken Comments Blood Pressure 127/85 08/25/2024 2:28 PM SHOE HANDLER Pulse 97 08/25/2024 2:28 PM SHOE HANDLER Temperature 36.9 C (98.4 F) 09/04/2023 12:52 AM SHOE HANDLER Respiratory Rate 20 09/04/2023 3:30 AM SHOE HANDLER Oxygen Saturation 97% 08/25/2024 2:28 PM SHOE HANDLER Inhaled Oxygen Concentration - - Weight 79.3 kg (174 lb 12.8 oz) 08/25/2024 2:28 PM SHOE HANDLER Height 157.5 cm (5' 2 ) 08/25/2024 2:28 PM SHOE HANDLER Body Mass Index 31.97 08/25/2024 2:28 PM SHOE HANDLER Plan of Treatment Not on file Procedures Procedure Name Priority Date/Time Associated Diagnosis Comments HEPATITIS C RNA, QUANTITATIVE, PCR Routine 06/19/2020 2:08 PM CDT from Last 3 Months or Most Recently Relevant to Health Maintenance Results * Hepatitis C (HCV) RNA PCR, quantitative (06/19/2020 2:08 PM CDT) [facility] Signature HCV RNA result Not Detected LADI COLLIER (SYLVIA) Comment: Interpretive data: The quantifiable range of this assay is 15 IU/mL to 100,000,000 IU/mL (1.18 log IU/mL to 8.00 log IU/mL). Testing was performed by the JONATHAN AmpliPrep/JONATHAN TaqMan HCV Test version 2.0 ([employer] Testing performed at [facility] Current Interpretive Data was last revised on 2015. Testing performed by: [facility], [address] [place]., [address] Blood specimen (specimen) 06/19/2020 2:08 PM CDT 06/19/2020 11:27 PM CDT us Tenisha Jones MD LAB MICROBIOLOGY - [facility] AL ORDERABLES Final Result ANJUM COLLIER ([place]) [address] [facility] [place] [facility] Department [place] [address] from Last 3 Months or Most Recently Relevant to Health Maintenance [place] [address] [place] [address] [facility] Advance Directives For more information, please contact: [phone] * Full Code (Latest Code Status on [...] in case of cardiopulmonary arrest Care Teams Top Ironer Relationship Specialty Start Date End Date Daniel Mcqueen MD PCP - General Family Practice 08/30/22
--- OUTSIDE RECORDS SUMMARY | 2024-12-13 12:54 | XMS_ITS | Clinical Summary ---
Author Organization [facility] Address [address] [place] [address] Care Team Providers Care Gore Maker Name Role Phone Daniel Mcqueen MD Primary Care Provider [phone] Allergies Active Allergy Reactions Criticality Noted Date [...] (07/01/2018): Added automatically from request for surgery [id number] Assessment & Plan (10/27/2018 3:32 PM CLAIMS ADJUSTER): The patient previously had constipation but since last March has been having 6 formed stools per day. There has been no bleeding. A colonoscopy is recommended to clarify the diagnosis and guide therapy. The risks, benefits, and alternatives were discussed with the patient and she agrees to proceed. Left lower quadrant pain 07/01/2018 Overview (07/01/2018): Added automatically from request for surgery [id number] Assessment & Plan (10/27/2018 3:33 PM CLAIMS ADJUSTER): This has been associated with a change [...] Family history of Heart problems; MGM - [place] Hypertension Other 7 Family history of Hypertension; [...] on file Legal Sex Female 12:42 AM CLAIMS ADJUSTER Gender Identity Not on file Sexual Orientation Not on file Occupation Industry Job Start Date Job End Date Student - [employer] Not on file Not on file [...] mahan, Ishan forte MD Complications:None Delivery Location:This [facility] ([facility]) Last Filed Vital Signs Vital Sign Reading Time Taken Comments Blood Pressure 127/85 08/25/2024 2:28 PM CLAIMS ADJUSTER Pulse 97 08/25/2024 2:28 PM CLAIMS ADJUSTER Temperature 36.9 C (98.4 F) 09/04/2023 12:52 AM CLAIMS ADJUSTER Respiratory Rate 20 09/04/2023 3:30 AM CLAIMS ADJUSTER Oxygen Saturation 97% 08/25/2024 2:28 PM CLAIMS ADJUSTER Inhaled Oxygen Concentration - - Weight 79.3 kg (174 lb 12.8 oz) 08/25/2024 2:28 PM CLAIMS ADJUSTER Height 157.5 cm (5' 2 ) 08/25/2024 2:28 PM CLAIMS ADJUSTER Body Mass Index 31.97 08/25/2024 2:28 PM CLAIMS ADJUSTER Plan of Treatment Health Maintenance Due Date [...] RNA PCR, quantitative (06/19/2020 2:08 PM CDT) [facility] HCV RNA result Not Detected LADI COLLIER (SYLVIA) Comment: Interpretive data: The quantifiable range of this assay is 15 IU/mL to 100,000,000 IU/mL (1.18 log IU/mL to 8.00 log IU/mL). Testing was performed by the JONATHAN AmpliPrep/JONATHAN TaqMan HCV Test version 2.0 ([employer] Testing performed at [facility] Current Interpretive Data was last revised on 2015. Testing performed by: [facility], [address] [facility], [place]., [address] Blood specimen (specimen) 06/19/2020 2:08 PM CDT 06/19/2020 11:27 PM CDT us Tenisha Jones MD LAB MICROBIOLOGY - GENER AL ORDERABLES Final Result [facility] [address] [facility] Department [place] [address] from Last 3 Months or Most Recently Relevant to Health Maintenance Insurance MEDICAID [facility] Advance Directives For more information, please contact: [phone] * Full Code (Latest Code Status on [...] in case of cardiopulmonary arrest Care Teams Gore Maker Relationship Specialty Start Date End Date Daniel Mcqueen MD PCP - General Family Practice 08/30/22
== END 2024-12-13 11:00 | disposition home or self-care (01) ==
PROVIDERS: PCP Nurse Practitioner Adult Health; Visit Provider Nurse Practitioner Adult Health
DX: R10.815 Periumbilic abdominal tenderness (principal); Z90.49 Acquired absence of other specified parts of digestive tract
CPT/HCPCS: 74176

== ENCOUNTER 2024-12-28 11:06 | Outpatient (CLI) | payer OTHER, SELFPAY ==
--- NOTE | ~2024-12-28 | XR_ITS ---
Left ankle Technique: AP, oblique, and lateral views were obtained. Clinical History: Pain Findings: No acute fracture or dislocation is seen. Osseous alignment is anatomic. Ankle mortise and other visualized joint spaces are preserved. Soft tissues are otherwise unremarkable. Impression: Unremarkable left ankle. Reviewed, dictated and finalized at location . Impression: Unremarkable left ankle.
--- NOTE | ~2024-12-28 | XR_ITS ---
Left foot Technique: AP and lateral views were obtained. Clinical History: Pain Findings: No acute fracture or dislocation is seen. Osseous alignment is anatomic. Joint spaces are p reserved without erosive or degenerative change. Soft tissues are unremarkable. Impression: Unremarkable left foot radiographs. Reviewed, dictated and finalized at location . Impression: Unremarkable left foot radiographs.
--- OUTSIDE RECORDS SUMMARY | 2024-12-28 11:55 | XMS_ITS | Clinical Summary ---
Author Organization [facility] Address [address] [place] [address] Care Team Providers Care Director Business Name Role Phone Daniel Mcqueen MD Primary Care Provider [phone] Allergies Active Allergy Reactions Criticality Noted Date [...] (07/01/2018): Added automatically from request for surgery [id number] Assessment & Plan (10/27/2018 3:32 PM RETAIL TRAINING MANAGER): The patient previously had constipation but since last March has been having 6 formed stools per day. There has been no bleeding. A colonoscopy is recommended to clarify the diagnosis and guide therapy. The risks, benefits, and alternatives were discussed with the patient and she agrees to proceed. Left lower quadrant pain 07/01/2018 Overview (07/01/2018): Added automatically from request for surgery [id number] Assessment & Plan (10/27/2018 3:33 PM RETAIL TRAINING MANAGER): This has been associated with a change [...] Family history of Heart problems; MGM - [place] Hypertension Other 7 Family history of Hypertension; [...] on file Legal Sex Female 12:42 AM RETAIL TRAINING MANAGER Gender Identity Not on file Sexual Orientation Not on file Occupation Industry Job Start Date Job End Date Student - [employer] Not on file Not [...] mahan, Ishan forte MD Complications:None Delivery Location:This [facility] ([facility]) Last Filed Vital Signs Vital Sign Reading Time Taken Comments Blood Pressure 127/85 08/25/2024 2:28 PM RETAIL TRAINING MANAGER Pulse 97 08/25/2024 2:28 PM RETAIL TRAINING MANAGER Temperature 36.9 C (98.4 F) 09/04/2023 12:52 AM RETAIL TRAINING MANAGER Respiratory Rate 20 09/04/2023 3:30 AM RETAIL TRAINING MANAGER Oxygen Saturation 97% 08/25/2024 2:28 PM RETAIL TRAINING MANAGER Inhaled Oxygen Concentration - - Weight 79.3 kg (174 lb 12.8 oz) 08/25/2024 2:28 PM RETAIL TRAINING MANAGER Height 157.5 cm (5' 2 ) 08/25/2024 2:28 PM RETAIL TRAINING MANAGER Body Mass Index 31.97 08/25/2024 2:28 PM RETAIL TRAINING MANAGER Plan of Treatment Health Maintenance Due Date [...] RNA PCR, quantitative (06/19/2020 2:08 PM CDT) [facility] HCV RNA result Not Detected LADI COLLIER (SYLVIA) Comment: Interpretive data: The quantifiable range of this assay is 15 IU/mL to 100,000,000 IU/mL (1.18 log IU/mL to 8.00 log IU/mL). Testing was performed by the JONATHAN AmpliPrep/JONATHAN TaqMan HCV Test version 2.0 ([employer] Testing performed at [facility] Current Interpretive Data was last revised on 2015. Testing performed by: [facility], [address] [facility], [place]., [address] Blood specimen (specimen) 06/19/2020 2:08 PM CDT 06/19/2020 11:27 PM CDT us Tenisha Jones MD LAB MICROBIOLOGY - GENER AL ORDERABLES Final Result [facility] 1 [facility] Department [place] [address] from Last 3 Months or Most Recently Relevant to Health Maintenance Insurance MEDICAID [facility] Advance Directives For more information, please contact: [phone] * Full Code (Latest Code Status on [...] in case of cardiopulmonary arrest Care Teams Director Business Relationship Specialty Start Date End Date Daniel Mcqueen MD PCP - General Family Practice 08/30/22
--- OUTSIDE RECORDS SUMMARY | 2024-12-28 11:55 | XMS_ITS | Data Portability ---
Author Organization [facility] Vikram Alvarado Address [address] [facility] [place] [address] Care Team Providers Care Hiv Prevention Specialist Name Role Phone DEBRA BARAKAT Primary Care Provider SONIA WERNER Tipple Oiler Assessment Encounter Date Assessment Date Assessment LastModified by Organization Details LastModified Time 06/08/2024 06/08/2024 Pt given resources on housing and public assistance in the area. 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 HORIZONTAL-Bc Not available Not available Not available Lab mycopl asma genita lium DNA, QL, MARCO A+pr obe, urine 2024 025 HELEN [facility] (Centralized Electronic Ordering - All Locations), Patient Can Go To The Location Of Their Choice, [id number] 10/21/2024 16:13:07 chlamy oniel tracho matis + neisse catherine gonorr hoeae + tricho monas vagina lis DNA panel, MARCO A+pr obe, urine 2024 025 HEL[facility], [address] [place] [address], [address], [place], [address], 09/23/2024 07:13:21 chlamy oniel tracho matis + neisse catherine gonorr hoeae + tricho monas vagina lis rRNA panel, MARCO A+pr obe 2023 024 [facility], [address], [address], [place], [address], 07/29/2024 16:13:37 mycopl asma genita lium DNA, QL, MARCO A+pr obe, urine 2023 024 HEL[facility], [address], [address], [place], [address], 07/29/2024 16:13:35 vagina l pathog ens panel, MARCO A+pr obe, vagina l fluid 2023 024 HELEN [facility], [address] [place] [address], [address], [place], [address], 06/12/2024 07:08:28 mycopl asma genita lium DNA, qualit ative, PCR 2023 024 [facility], [address] [place] [address], [address], [place], [address], 06/12/2024 07:08:29 cytolo gy report , thin prep, smear or scrapi ng, cervic al or vagina l 2023 024 [facility], [address] [place] [address], [address], [place], [address], 06/15/2024 16:13:23 Referral gastro entero logist referr al 2023 024 [facility], [address] [place] [address], [facility] [place], [place], [address], 08/30/2024 17:27:12 Procedures None record ed. Surgeries None record ed. Imaging US, pelvis , transa bdomin al + transv aginal 2023 024 [facility], [address] [facility] , [place], [address], 08/10/2024 08:34:41 Medication Orders medrox yproge steron e 150 mg/mL intram uscula r suspen tonio 2024 025 [id number], [address], [place], [place], [id number], 10/18/2024 16:53:21 Macrob id 100 mg capsul e 2023 024 [facility][id number], [address], [place], [place], [id number], 07/26/2024 15:33:13 medrox yproge steron e 150 mg/mL intram uscula r suspen tonio 2023 024 [facility][id number], [address], [place], [place], [phone], 06/08/2024 11:26:30 medrox yproge steron e 150 mg/mL intram uscula r suspen tonio 2023 024 [facility] #[id number], [address], [place], [place], [id number], 05/10/2024 09:15:48 Patient TargetsNo targets recorded. Patient InstructionsNo instructions recorded. 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 Chronic abdominal pain Referring Physician: Henrietta Bean, Director Of Audiology, Encounter Date: 07/26/2024 Results Created Date Observation Date Name Description Value Unit Range Abnormal Flag Note LastModifiedBy Organization Detail LastModifiedTime 06/08/20 24 06/11/2024 NUSWA B VAGIN ITIS PLUS (VG+) atopobium vaginae LOW - 0 score Not Available [facility] ([facility]) [address], [place], [address], 06/12/2024 07:08:28 06/08/2006/11/2024 NUSWA B VAGIN ITIS PLUS (VG+) bvab 2 LOW - 0 score Not Available [facility] ([facility]) [address], [place], [address], 06/12/2024 07:08:28 06/08/2006/11/2024 NUSWA B VAGIN ITIS PLUS (VG+) megasphaera 1 LOW - 0 score Calcu late total score by rodrigo mendoza the 3 indiv idual bacte rial vagin osis (BV) marke r score s toget her. Total score is inter prete d as follo ws: Total score 0-1: Indic ates the absen ce of BV. Total score 2: Indet ermin ate for BV. Addit ional clini froilan data shoul d be evalu ated to estab dior a diagn osis. Total score 3-6: Indic ates the prese nce of BV. Not Available [facility] ([facility]) [address], [place], [address], 06/12/2024 07:08:28 06/08/2006/11/2024 NUSWA B VAGIN ITIS PLUS (VG+) vin albicans, MARCO A NEGATI VE negati ve Not Available [facility] ([facility]) [address] [place], [address], 06/12/2024 07:08:28 06/08/2006/11/2024 NUSWA B VAGIN ITIS PLUS (VG+) vin glabrata, MARCO A NEGATI VE negati ve Not Available [facility] ([facility]) [address], [place], [address], 06/12/2024 07:08:28 06/08/2006/11/2024 NUSWA B VAGIN ITIS PLUS (VG+) trich vag by MARCO A NEGATI VE negati ve Not Available [facility] ([facility]) [address], [place], [address], 06/12/2024 07:08:28 06/08/20 24 06/11/2024 NUA B VAGIN ITIS PLUS (VG+) chlamydia trachomatis, MARCO A NEGATI VE negati ve Not Available [facility] ([facility]) [address], [place], [address], 06/12/2024 07:08:28 06/08/2006/11/2024 NUA B VAGIN ITIS PLUS (VG+) neisseria gonorrhoeae, MARCO A NEGATI VE negati ve Not Available [facility] ([facility]) [address], [place], [address], 06/12/2024 07:08:28 06/08/2006/11/2024 M GENIT ALIUM MARCO A, SWAB mycoplasma genitalium MARCO A POSITI VE negati ve abnormal Not Available [facility] ([facility]) [address], [place], [address], 06/12/2024 07:08:29 06/08/2006/10/2024 IGP, APTIM A HPV, RFX 16/18 ,45 HPV aptima POSITI VE negati ve abnormal This nucle ic acid ampli ficat ion test detec ts fourt een high- risk HPV types (16,1 8,31, 33,35 ,39,4 5,51, 52,56 ,58,5 9,66, 68) witho ut diffe renti ation . Not Available [facility] ([facility]) [address], [place], [address], 06/15/2024 16:13:23 06/08/20 24 06/15/2024 IGP, APTIM A HPV, RFX 16/18 ,45 diagnosis: COMMEN T abnormal EPITH ELIAL CELL ABNOR MALIT Y. LOW GRADE SQUAM OUS INTRA EPITH ELIAL LESIO N (LSIL ). Not Available [facility] ([facility]) [address], [place], [address], 06/15/2024 16:13:23 06/08/2006/15/2024 IGP, APTIM A HPV, RFX 16/18 ,45 recommendati on: JONAH Vera abnormal Sugge st follo w up as clini humberto appro priat e. Not Available [facility] ([facility]) [address], [place], [address], 06/15/2024 16:13:23 06/08/2006/15/2024 IGP, APTIM A HPV, RFX 16/18 ,45 specimen adequacy: JONAH Vera Satis facto ry for evalu ation . No endoc ervic al compo nent is ident ified . Not Available [facility] ([facility]) [address], [place], [address], 06/15/2024 16:13:23 06/08/20 24 06/15/2024 IGP, APTIM A HPV, RFX 16/18 ,45 clinician provided ICD10: JONAH Vera Z01.4 19 Not Available [facility] ([facility]) [address] [place], [address], 06/15/2024 16:13:23 06/08/2006/15/2024 IGP, APTIM A HPV, RFX 16/18 ,45 performed by: JONAH Mckeon , Cytot echno logis t Not Available [facility] ([facility]) [address] [place], [address], 06/15/2024 16:13:23 06/08/2006/15/2024 IGP, APTIM A HPV, RFX 16/18 ,45 electronical ly signed by: JONAH Payan MD, Patho logis t Not Available [facility] ([facility]) [address] [place], [address], 06/15/2024 16:13:23 06/08/20 24 06/15/2024 IGP, APTIM A HPV, RFX 16/18 ,45 . . Not Available [facility] ([facility]) [address] [place], [address], 06/15/2024 16:13:23 06/08/2006/15/2024 IGP, APTIM A HPV, RFX 16/18 ,45 pathologist provided ICD10: JONAH Vera R87.6 12 Not Available [facility] ([facility]) [address] [place], [address], 06/15/2024 16:13:23 06/08/2006/15/2024 IGP, APTIM A HPV, RFX 16/18 ,45 note: JONAH T The Pap smear is a scree colin test desig sreedhar to aid in the detec tion of mira ligna nt and malig nant condi tions of the uteri ne cervi x. It is not a diagn ostic proce dure and shoul d not be used as the sole means of detec ting cervi froilan cance r. Both false -posi tive and false -nega tive repor ts do occur . Not Available [facility] ([facility]) [address], [place], [address], 06/15/2024 16:13:23 06/08/20 24 06/15/2024 IGP, APTIM A HPV, RFX 16/18 ,45 test methodology: JONAH T This liqui d based ThinP rep(R ) pap test was scree sreedhar with the use of an image guide faraz graham Not Available [facility] ([facility]) [address] [place], [address], 06/15/2024 16:13:23 06/08/20 24 06/15/2024 IGP, APTIM A HPV, RFX 16/18 ,45 HPV genotype reflex COMMEN T Crite catherine not met, HPV Genot ype not perfo rmed. Not Available [facility] ([facility]) [address] [place], [address], 06/15/2024 16:13:23 07/26/20 24 07/29/2024 M GENIT ALIUM MARCO A, URINE mycoplasma genitalium MARCO A POSITI VE negati ve abnormal Not Available [facility] ([facility]) [address] [place], [address], 07/29/2024 16:13:35 07/26/20 24 07/28/2024 CT, NG, TRICH VAG BY MARCO A chlamydia by MARCO A NEGATI VE negati ve Not Available [facility] ([facility]) [address] [place], [address], 07/29/2024 16:13:37 07/26/20 24 07/28/2024 CT, NG, TRICH VAG BY MARCO A gonococcus by MARCO A NEGATI VE negati ve Not Available [facility] ([facility]) [address] [place], [address], 07/29/2024 16:13:37 07/26/20 24 07/28/2024 CT, NG, TRICH VAG BY MARCO A trich vag by MARCO A NEGATI VE negati ve Not Available [facility] ([facility]) [address] [place], [address], 07/29/2024 16:13:37 09/16/19 25 09/20/2024 CT/GC /TV MARCO A+M YCOPL ASMAS URINE trich vag by MARCO A NEGATI VE negati ve Not Available [facility] ([facility]) [address] [place], [address], 09/23/2024 07:13:20 09/16/19 25 09/20/2024 CT/GC /TV MARCO A+M YCOPL ASMAS URINE chlamydia trachomatis, MARCO A NEGATI VE negati ve Not Available [facility] ([facility]) [address], [place], [address], 09/23/2024 07:13:20 09/16/19 25 09/20/2024 CT/GC /TV MARCO A+M YCOPL ASMAS URINE neisseria gonorrhoeae, MARCO A NEGATI VE negati ve Not Available [facility] ([facility]) [address], [place], [address], 09/23/2024 07:13:20 09/16/19 25 09/21/2024 CT/GC /TV MARCO A+M YCOPL ASMAS URINE mycoplasma hominis MARCO A NEGATI VE negati ve Not Available [facility] ([facility]) [address], [place], [address], 09/23/2024 07:13:20 09/16/19 25 09/21/2024 CT/GC /TV MARCO A+M YCOPL ASMAS URINE ureaplasma spp MARCO A NEGATI VE negati ve Not Available [facility] ([facility]) [address], [place], [address], 09/23/2024 07:13:20 09/16/19 25 09/22/2024 CT/GC /TV MARCO A+M YCOPL ASMAS URINE mycoplasma genitalium MARCO A POSITI VE negati ve abnormal Not Available [facility] ([facility]) [address], [place], [address], 09/23/2024 07:13:20 10/18/19 25 10/21/2024 M GENIT ALIUM MARCO A, URINE mycoplasma genitalium MARCO A NEGATI VE negati ve Not Available [facility] ([facility]) [address], [place], [address], 10/21/2024 16:13:07 08/09/20 24 08/02/2024 US, pelvi s, trans abdom inal + trans vagin al No observ ation record ed. [address] , [place], [address], 08/10/2024 17:34:24 Result Notes None recorded. Problems Name Problem SNOMED Code Status Onset Date Resolution Date Notes Provider Name and Address Organization Details Recorded Time Pregnanc y 53563015 Completed 201711/12/2017 Saniya Perales null, [place] - [facility] 8 11:23:56 Late entry into care 648960955 Active 2017 Christina Lacy MD Attn: Matthew mendoza,[address] [facility], [place], [address], [place] [facility] 8 20:36:27 Group B Streptoc occus carrier 47426262736 03 Active 2017 Christina Lacy MD Attn: Matthew mendoza,[address] [facility], [place], [address], [place] [facility] 8 11:10:34 Attentio n deficit hyperact ivity disorder 562230352 Active Sakina Osorio [place], [place] [facility] 6 15:50:28 Mood disorder 42600516 Active Sakina Osorio [place] [facility] 6 15:50:28 Suicidal 447678515 Active Sakina Osor[place] [facility] 6 15:50:28 Anaphyla xis 63471909 Active Sakina Osor[place] [facility] 6 15:50:28 Upper respirat ory infectio n 72848869 Active Sakina Osor[place] [facility] 6 15:50:28 Acute bronchit is 45968037 Active Sakina Osorio [place] [facility] 6 15:50:28 Irregula r periods 73422767 Completed 09/23/2017 Removal Reason: Patient is Christina Lacy MD Attn: Matthew mendoza,[address] [facility], [place], [address], [place] [facility] 8 20:35:21 Acute contact dermatit is 462904808 Active Sakina Osorio [place], [place] [facility] 6 15:50:28 Problem Notes None recorded. Procedures Surgical History Date Name Laterality Status Provider Name and Address Organization Details Recorded Time 06/08/20 24 Date of Last Pap Smear completed LEANN Holliday [place] - [facility] 09/16/2024 10:00:24 08/26/19 24 Control Implant Removal completed FRANCESCA White Attn: Accounting,[address] [facility], [place], [address], [place] [facility] 08/26/2023 12:01:20 03/30/20 18 IUD Removal completed Christina Lacy MD Attn: Accounting,[address] [facility], [place], [address], [facility] - [facility] 03/30/2018 15:13:48 03/30/20 18 IUD Insertion completed Christina Lacy MD Attn: Accounting,[address] [facility], [place], [address], [facility] - [facility] 03/30/2018 15:14:02 12/17/19 18 IUD Insertion completed Christina Lacy MD Attn: Accounting,[address] [facility], [place], [address], [place] - [facility] 12/17/2017 08:44:32 08/24/19 16 Orthopedic Surgery completed Sakina Osorio [place] - [facility] 05/14/2016 15:50:28 08/24/19 12 Other completed Sakina Osorio [place] - [facility] 02/27/2015 15:36:41 Tonsillectomy completed Mable Fowler [place] - [facility] 04/25/2015 17:10:06 Imaging Results Imaging Date Name Status LastModified by Organization Details LastModified Time 08/02/2024 US, pelvis, transabdominal + transvaginal completed HELEN [address] [place], [address], 08/10/2024 17:34:24 Procedure Notes None recorded. Medical Equipment None Reported. Allergies Allergen ID Allergen Name Allergen Category Reaction Reaction Severity Criticality Documentation Date Start Date Code Code System Note Provider Name and Address Organization Details Recorded Time 573510 latex environme nt,medica tion Not available Not available Not available 12/02/2023 36221 91 RxNorm Marina [place] null, [place] - [facility] 10:17:01 86594 honey bee venom environme nt Not available Not available Not available 02/27/2015 12280 7 RxNorm HEIDI [place], [place] - [facility] 5 15:36:41 94267 wasp venoms environme nt Not available Not available Not available 02/27/2015 25263 RxNorm HEIDI [place], [place] [facility] 5 15:36:41 72180 Substance with sulfonami de structure and antibacte rial mechanism of action (substanc e) medicatio n Not available Not available Not available 07/05/2015 75913 8003 SNOMED HEIDI [place], [place] - [facility] 5 15:06:45 Medications Name Sig Start Date Stop Date Status Note LastModified by Organization Details LastModified Time Mirena 21 mcg/24 hr (up to 8 years) 52 mg intrauter ine device Take 1 device by intraute rine route. 08/26 completed Not Available Not Available Not Available methocarb luly 500 mg tablet TAKE 1 TABLET BY MOUTH TWICE DAILY 12/01 completed Not Available Not Available Not Available lamotrigi ne 150 mg tablet 09/16 completed Not Available Not Available Not Available bupropion HCl SR 150 mg tablet,12 hr sustained -release 09/16 completed Not Available Not Available Not Available doxycycli ne hyclate 100 mg capsule TAKE 1 CAPSULE BY MOUTH TWICE DAILY FOR 7 DAYS active Not Available Not Available No t Available naproxen 375 mg tablet active Not Available Not Available Not Available polyethyl yaneli glycol 3350 17 gram oral powder packet 12/01 completed Not Available Not Available Not Available Stool Softener 100 mg capsule 12/01 completed Not Available Not Available Not Available fluconazo le 150 mg tablet TAKE 1 TABLET BY MOUTH FOR 1 DOSE active Not Available Not Available No t Available cephalexi n 250 mg capsule TAKE ONE CAPSULE BY MOUTH FOUR TIMES DAILY FOR 5 DAYS 12/01 completed Not Available Not Available Not Available hydrocodo ne 5 mg-acetam inophen 325 mg tablet TAKE 1 TABLET BY MOUTH EVERY 6 HOURS NEEDED FOR PAIN 12/01 completed Not Available Not Available Not Available promethaz ine 12.5 mg tablet 09/16 completed Not Available Not Available Not Available prednison e 20 mg tablet TAKE 2 TABLETS BY MOUTH DAILY 08/26 completed Not Available Not Available Not Available terconazo le 0.8 % vaginal cream Insert 1 applicat orful every day by vaginal route in the evening for 3 days. 12/01 completed Not Available Not Available Not Available Zithromax Z-Tyshawn 250 mg tablet TAKE 2 TABLETS (500 MG) BY ORAL ROUTE ONCE DAILY FOR 1 DAY THEN 1 TABLET (250 MG) BY ORAL ROUTE ONCE DAILY FOR 4 DAYS 12/01 completed Not Available Not Available Not Available diphenoxy late-atro pine 2.5 mg-0.025 mg tablet TAKE 1 TABLET BY MOUTH FOUR TIMES DAILY NEEDED FOR DIARRHEA 12/01 completed Not Available Not Available Not Available acetamino phen 300 mg-codein e 30 mg tablet 09/16 completed Not Available Not Available Not Available ciproflox acin 250 mg tablet TAKE 1 TABLET BY MOUTH EVERY 12 HOURS FOR 5 DAYS 05/09 completed Not Available Not Available Not Available acyclovir 400 mg tablet Take 1 tablet 3 times a day by oral route for 30 days. 2017 active Not Available Not Available Not Avai lable omeprazol e 40 mg capsule,d elayed release TAKE 1 CAPSULE BY MOUTH TWICE DAILY 12/01 completed Not Available Not Available Not Available tramadol 50 mg tablet 12/01 completed Not Available Not Available Not Available bupropion HCl SR 100 mg tablet,12 hr sustained -release 09/16 completed Not Available Not Available Not Available pantopraz ole 20 mg tablet,de layed release 12/01 completed Not Available Not Available Not Available dexmethyl phenidate 10 mg tablet 09/16 completed Not Available Not Available Not Available oxycodone -acetamin ophen 5 mg-325 mg tablet 09/16 completed Not Available Not Available Not Available dicyclomi ne 20 mg tablet active Not Available Not Available Not Available amitripty line 10 mg tablet TAKE 1 TABLET BY MOUTH EVERY DAY AT BEDTIME active Not Available Not Available No t Available hyoscyami ne 0.125 mg disintegr ating tablet active Not Available Not Available Not Available omeprazol e 20 mg capsule,d elayed release TAKE 1 CAPSULE BY MOUTH DAILY active Not Available Not Available No t Available estradiol 2 mg tablet Take 1 tablet every day by oral route for 21 days. 12/01 completed Not Available Not Available Not Available mupirocin 2 % topical ointment 09/16 completed Not Available Not Available Not Available epinephri ne 0.3 mg/0.3 mL injection , auto-inje ctor INJECT 0.3 MG IN THE MUSCLE ONCE A SINGLE DOSE active Not Available Not Available No t Available ibuprofen 600 mg tablet 05/09 completed Not Available Not Available Not Available albuterol sulfate HFA 90 mcg/actua tion aerosol inhaler INHALE 1 PUFF EVREY 4 HOURS NEEDED FOR SHORTNES S OF BREATH OR WHEEZING active Not Available Not Available No t Available hydrocort isone 2.5 % topical ointment APPLY A THIN LAYER TO THE AFFECTED AREA(S) BY TOPICAL ROUTE 2 TIMES PER DAY 09/16 completed Not Available Not Available Not Available ondansetr on 4 mg disintegr ating tablet DISSOLVE ONE TABLET BY MOUTH EVERY 4 HOURS NEEDED FOR NAUSEA OR VOMITING active Not Available Not Available No t Available clotrimaz ole 1 % topical cream APPLY TOPICALL Y TO THE AFFECTED AREA EVERY 12 HOURS FOR 2 WEEKS active Not Available Not Available No t Available medroxypr ogesteron e 150 mg/mL intramusc ular suspensio n Inject 1 mL every 3 months by intramus cular route for 90 days. 2024 active Not Available Not Available Not Avai lable dicyclomi ne 10 mg capsule TAKE 1 CAPSULE BY MOUTH THREE TIMES DAILY active Not Available Not Available No t Available metoclopr amide 10 mg tablet TAKE 1 TABLET BY MOUTH EVERY 6 HOURS active Not Available Not Available No t Available amoxicill in 875 mg-potass ium clavulana te 125 mg tablet TAKE 1 TABLET BY MOUTH TWICE DAILY 08/26 completed Not Available Not Available Not Available amoxicill in 500 mg-potass ium clavulana te 125 mg tablet Take 1 tablet every 12 hours by oral route for 5 days. 04/15 completed Not Available Not Available Not Available azithromy randy 500 mg tablet TAKE 1 TABLET BY MOUTH EVERY DAY FOR 3 DAYS active Not Available Not Available No t Available medroxypr ogesteron e 150 mg/mL intramusc ular syringe Inject 1 mL every 3 months by intramus cular route. 2023 active Not Available Not Available Not Avai labmarilin Sprintec (28) 0.25 mg-0.035 mg tablet Take 1 tablet every day by oral route. 09/16 completed Not Available Not Available Not Available bupropion HCl XL 300 mg 24 hr tablet, extended release active Not Available Not Available Not Available bupropion HCl XL 150 mg 24 hr tablet, extended release 09/16 completed Not Available Not Available Not Available 09/12 (28) 1 mg-20 mcg (21)/75 mg (7) tablet Take 1 tablet every day by oral route. 09/16 completed Not Available Not Available Not Available Melatonin (with B6) 5 mg-1 mg tablet Take by oral route. 09/16 completed Not Available Not Available Not Available nitrofura ntoin monohydra te/macroc rystals 100 mg capsule TAKE 1 CAPSULE BY MOUTH EVERY 12 HOURS FOR 5 DAYS 07/26 completed Not Available Not Available Not Available Focalin XR 10 mg capsule,e xtended release TAKE 1 CAPSULE BY MOUTH DAILY active Patient states not taking Not Available Not Available Not Available Focalin XR 20 mg capsule,e xtended release active Not Available Not Available Not Available dexmethyl phenidate ER 30 mg capsule,e xtended release biphasic5 0-50 active Not Available Not Available Not Available dexmethyl phenidate ER 40 mg capsule,e xtended release biphasic5 0-50 09/16 completed Not Available Not Available Not Available EpiPen Jr 2-Tyshawn 0.15 mg/0.3 mL injection ,auto-inj linda Take 1 auto as needed by injectio n route. 12/01 completed Not Available Not Available Not Available PNV 29-1 29 mg iron-1 mg tablet 12/01 completed Not Available Not Available Not Available Paxlovid 300 mg (150 mg x 2)-100 mg tablets in a dose pack TAKE 2 NIRMATRE LVIR TABLETS AND 1 RITONAVI R TABLET TOGETHER BY MOUTH TWICE DAILY FOR 5 DAYS 12/01 completed Not Available Not Available Not Available Vitals Date Recorded Body height Body mass index (BMI) Body weight Heart rate Systolic blood pressure Diastolic blood pressure Provider Name and Address Organization Details Last Updated DateTime 4 160.02 cm 30.3 kg/m2 69501.7 g 69 /min 115 mm[Hg] 80 mm[Hg] Marina Rajput [facility] 4 14:22:20 Date Recorded Body height Body mass index (BMI) Body weight Heart rate Systolic blood pressure Diastolic blood pressure Provider Name and Address Organization Details Last Updated DateTime 4 160.02 cm 30 kg/m2 60565.5 1 g 79 /min 119 mm[Hg] 82 mm[Hg] Marina Rajput Dalton [facility] 4 11:06:14 Date Recorded Body height Provider Name an d Address Organization Details Last Updated DateTime 07/26/2024 160.02 cm Marina Rajput Dalton [facility] 2023 15:46:11 Date Recorded Body height Body mass index (BMI) Body weight Systolic blood pressure Diastolic blood pressure Provider Name and Address Organization Details Last Updated DateTime 09/16/2024 160.02 cm 31.4 kg/m2 98225.25 g 121 mm[Hg] 85 mm[Hg] Swapna Lynn Lisa [facility] 5 10:05:48 Date Recorded Body height Provider Name an d Address Organization Details Last Updated DateTime 10/18/2024 160.02 cm Swapna Lynn Lisa [facility] 2024 16:00:12 Social History Question Answer Notes LastModified by Organizat ion Details LastModified Time Tobacco Smoking Status Current Every Day Smoker Marina Rajput Dalton [facility], [facility] 12/02/2023 10:12:07 What Is Your Level Of Alcohol Consumption? None Information not available 04/25/2015 Animal Exposure? No [email or web address] Informat ion not available 02/27/2015 Is Blood Transfusion Acceptable In An Emergency? Yes Information not available 04/25/2015 Are You Or Have You Been Involved With Bullying? No [email or web address] Information not available 02/27/2015 What Is Your Level Of Caffeine Consumption? Occasional [email or web address] Information not available 02/27/2015 How Much Tobacco Do You Chew? None Information not available 04/25/2015 In The 14 Days Before Symptom Onset, Have You Had Close Contact With A Laboratory-confir med COVID-19 While That Case Was Ill? No Information not available 12/02/2023 In The 14 Days Before Symptom Onset, Have You Had Close Contact With A Person Who Is Under Investigation For COVID-19 While That Person Was Ill? No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 complaints:No sexual complaints; No pain during intercourse; Normal libido Menopausal Symptoms:No menopausal symptoms; Normal vaginal lubrication Psychological symptoms:No depression; No anxiety; No PMDD Preventive measures:Encourage self breast examination; Encourage regular exercise; Encourage no tobacco use; Encourage regular mammograms starting age 40; Followed with Q3 year pap smear and high risk HPV typing 24 yo fe here for cherry pos mycoplasma 07/26/24- hx adhd, mood disorder, - last pap lsil hpv pos 06/08/24 FRANCESCA White Attn: Accounting[address] [place], [address], [facility] 09/16/2024 11:10:13 10/18/2024 text/html Annual GYNReport ed bypatient.History:n o gynecologic complaints Menstrual cycle:Normal menses Urinary symptoms:No hematuria; No incontinence Vulva:No genital lesion Vagina:Normal vaginal discharge Breast:No breast pain; No breast lump; No nipple discharge Current Contraception:Wants to discuss contraceptive options Sexual complaints:No sexual complaints; No pain during intercourse; Normal libido Menopausal Symptoms:No menopausal symptoms; Normal vaginal lubrication Psychological symptoms:No depression; No anxiety; No PMDD Preventive measures:Encourage self breast examination; Encourage regular exercise; Encourage no tobacco use; Encourage regular mammograms starting age 40; Followed with Q3 year pap smear and high risk HPV typing 24 yo fe here for depo injection- hx adhd, mood disorder, - no complaints- needs cherry FRANCESCA White Attn: Accounting[address] [place], [address], [facility] 10/18/2024 16:28:16 OBGyn Episode Ob Episode Information Episode Created Date Number of Fetuses Patient Bloodtype Patient rh Status Prepregnancy Weight lbs Domestic Partner Domestic Partner Phone Father Name Radio Installer Automobile Status 09/15/19 18 1 Naveed File CLOSED Fetus Data First Name Last Name Admitted to NICU Weight (g) Sex Living Outcome Pediatric Complications Fetus ID Race Codes Race Delivery Type Mark Anthony File false [phone] 3 M true Full Term [id number] White Vaginal Segun Calculation Initial Segun Date Initial Exam Date Initial Exam Provider Initial Ultrasound Date Last Menstrual Period Date Ultra Sound Weeks Gestation 11/22/2017 09/15/2017 [email or web address] 02/15/2017 0 Eighteen To Twenty Week Segun Update Ultra Sound Date Fundal Height At Umbil Quickening Date Ultra Sound Latest Weeks Gestation Final Segun Confirmed By Final Segun Confirmed Date Final Segun Date Ultra Sound Latest Days Gestation 09/18/19 18 30 [email or web address] 09/15/2017 11/23/19 18 5 Pre- Flowsheet Flowsheet Date 09/15/2017 Aldana Score Blood Edema Fundus Height Fundus Units Glucose Ketones Leukocytes Nitrite Labor Signs Protein Cervic Dilation Cervic Effacement Cervic Station Type Weight in lbs Pre/Post Dialysis Refused 157.431159486112 BP Diastolic BP Location Tested BP Systolic BP Type 64 106 sitting Fetus Heart Rate Present Fetus Movement Comments Patient is 17 yo GP0 at 30 w eeks abd 2 days by SEGUN 11/22/2017. 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 Patient complains of hip pain which is worse with movement or when she sneezes. Patient states that the pain has improved since she started taking treatment for antibiotics.POB: nulliparous PGYN: denies PMH: Asthma PSH: Ankle surgery, cholecystectomy and tonsillectomyAllergic: sulpha eye dropsMedication: PNVSocial: denies substance abuse Family: Brother is autistic Flowsheet Date 09/23/2017 Aldana Score Blood Edema Fundus Height Fundus Units Glucose Ketones Leukocytes Nitrite Labor Signs Protein Cervic Dilation Cervic Effacement Cervic Station neg 34 none negative trace Type Weight in lbs Pre/Post Dialysis Refused 161.047274422502 BP Diastolic BP Location Tested BP Systolic BP Type 70 110 Fetus Heart Rate Present A 159 Fetus Movement A Yes Comments Patient is being seen earlie r than expected. Patient was informed of results. Patient was informed that she will need varicella vaccination after she gives . Patient offers no complaints. Anatomy scan was normal. GCT was also normal. Patient has received TDAP. Flowsheet Date 10/14/2017 Aldana Score Blood Edema Fundus Height Fundus Units Glucose Ketones Leukocytes Nitrite Labor Signs Protein Cervic Dilation Cervic Effacement Cervic Station 39 Type Weight in lbs Pre/Post Dialysis Refused 175.454790934519 BP Diastolic BP Location Tested BP Systolic BP Type 80 132 sitting Fetus Heart Rate Present A 150 Fetus Movement A Yes Comments Patient complains of bilater al leg swelling. Patient denies headaches, blurring of vision and epigastric pain. Leg elevation and compression stockings were recommended. SFH > dates. Will order OB US for interval growth. Flowsheet Date 10/22/2017 Aldana Score Blood Edema Fundus Height Fundus Units Glucose Ketones Leukocytes Nitrite Labor Signs Protein Cervic Dilation Cervic Effacement Cervic Station neg 40 none negative neg Type Weight in lbs Pre/Post Dialysis Refused 177.123308851092 BP Diastolic BP Location Tested BP Systolic BP Type 72 114 sitting Fetus Heart Rate Present A 143 Fetus Movement A Yes Comments Patient reports being seen i n labor and delivery 4 days ago for contractions and was noted to have tachycardia which resolved after hydration. GBS culture was sent. Patient is yet to do OB US for interval growth. Patient was instructed to go labor and delivery for OB US for interval growth. Flowsheet Date 10/29/2017 Aldana Score Blood Edema Fundus Height Fundus Units Glucose Ketones Leukocytes Nitrite Labor Signs Protein Cervic Dilation Cervic Effacement Cervic Station neg 43 none negative neg Type Weight in lbs Pre/Post Dialysis Refused 176.156217195035 BP Diastolic BP Location Tested BP Systolic BP Type 74 116 sitting Fetus Heart Rate Present A 154 Fetus Movement A Yes Comments Patient was informed that sh e was GBS positive. 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 SFH > dates. OB US for interval growth was recommended as the patient did not get it done the last time. labor precautions were reviewed. Flowsheet Date 11/04/2017 Aldana Score Blood Edema Fundus Height Fundus Units Glucose Ketones Leukocytes Nitrite Labor Signs Protein Cervic Dilation Cervic Effacement Cervic Station 44 none negative neg Type Weight in lbs Pre/Post Dialysis Refused 175.362121171947 BP Diastolic BP Location Tested BP Systolic BP Type 70 118 sitting Fetus Heart Rate Present A 141 Fetus Movement A Yes Comments Patient c/o cough, nasal con gestion and a blocked left ear. Influenza A and B swab was negative. Rapid strep throat swab was normal. Good air entry bilaterally. Rx for Azithromycin was sent to the pharmacy. Sunny Side fluid intake was encouraged. Patient was instructed to go to radiology for OB US for EFW as SFH > dates. Patient is aware of labor precautions. Menstrual History Last Menstrual Date Menses Monthly On Bcp Conception Prior Menses Frequency Hcg Plus Date Menarche Onset Age 0602/15/2017 false Genetic Screening And Infection History Question Response Note Patient's Age Will Be 35 Years Or Older At Estim ated Date of Delivery false Thalassemia (Swedish, Cayman Islander, Mediterranean, Or Background): MCV < 80 false Neural Tube Defect (Meningomyelocele, Spina Bifi da, Or Anencephaly) false Congenital Heart Defect false Down Syndrome false Steffen-Sachs (eg, Advent, Cajun, [place]ian[place]) f alse Fran Disease false Sickle Cell Disease Or Trait () false Hemophilia Or Other Blood Disorders false Muscular Dystrophy false Cystic Fibrosis false Karen's Chorea false Mental Retardation/Autism false If Yes, Was Person Tested For Fragile X? false Other Inherited Genetic Or Chromosomal Disorder false Maternal Metabolic Disorder (eg, Type 1 Diabetes , PKU) false Patient Or Baby's Father Had A Child With Defects Not Listed Above false Recurrent Loss, Or A Stillbirth false Medications (including Suppl ements, Vitamins, Herbs, OTC Drugs), Illicit/Recreational Drugs, Alcohol false If Yes, Agent(s) And Strength/Dosage false Any Other Genetic History false Live With Someone With TB Or Exposed To TB false Patient Or Partner Has History Of Genital Herpes false Rash Or Viral Illness Since Last Menstrual Perio d false History Of STD, Gonorrhea, Chlamydia, HPV, Syphi lis false Other Infection History false Delivery Information Delivery Date Delivery Type Labor Anesthesia Weeks Gestation Incision Type Labor Labor Length Hrs Delivered By Post Complications Tubal Sterilization Discharge Date Comments 8 [facility] Alvarez false 11/09/2017 Discharge Information Feeding Method Contraceptive Method Maternal HG B and HCT Levels Bottle
--- OUTSIDE RECORDS SUMMARY | 2024-12-28 11:55 | XMS_ITS | Referral Summary ---
Author Organization [facility] Address [address] [place] [address] Care Team Providers Care Visual Effects Artist Name Role Phone Daniel Mcqueen MD Primary Care Provider [phone] Allergies Active Allergy Reactions Criticality Noted Date [...] (07/01/2018): Added automatically from request for surgery [id number] Assessment & Plan (10/27/2018 3:32 PM COUNTY BAILIFF): The patient previously had constipation but since last March has been having 6 formed stools per day. There has been no bleeding. A colonoscopy is recommended to clarify the diagnosis and guide therapy. The risks, benefits, and alternatives were discussed with the patient and she agrees to proceed. Left lower quadrant pain 07/01/2018 Overview (07/01/2018): Added automatically from request for surgery [id number] Assessment & Plan (10/27/2018 3:33 PM COUNTY BAILIFF): This has been associated with a change [...] on file Legal Sex Female 12:42 AM COUNTY BAILIFF Gender Identity Not on file Sexual Orientation Not on file Occupation Industry Job Start Date Job End Date Student - [employer] Not on file Not on file Not on file Last Filed Vital Signs Vital Sign Reading Time Taken Comments Blood Pressure 127/85 08/25/2024 2:28 PM COUNTY BAILIFF Pulse 97 08/25/2024 2:28 PM COUNTY BAILIFF Temperature 36.9 C (98.4 F) 09/04/2023 12:52 AM COUNTY BAILIFF Respiratory Rate 20 09/04/2023 3:30 AM COUNTY BAILIFF Oxygen Saturation 97% 08/25/2024 2:28 PM COUNTY BAILIFF Inhaled Oxygen Concentration - - Weight 79.3 kg (174 lb 12.8 oz) 08/25/2024 2:28 PM COUNTY BAILIFF Height 157.5 cm (5' 2 ) 08/25/2024 2:28 PM COUNTY BAILIFF Body Mass Index 31.97 08/25/2024 2:28 PM COUNTY BAILIFF Plan of Treatment Not on file Procedures Procedure Name Priority Date/Time Associated Diagnosis Comments HEPATITIS C RNA, QUANTITATIVE, PCR Routine 06/19/2020 2:08 PM CDT from Last 3 Months or Most Recently Relevant to Health Maintenance Results * Hepatitis C (HCV) RNA PCR, quantitative (06/19/2020 2:08 PM CDT) [facility] Signature HCV RNA result Not Detected LADI COLLIER (SYLVIA) Comment: Interpretive data: The quantifiable range of this assay is 15 IU/mL to 100,000,000 IU/mL (1.18 log IU/mL to 8.00 log IU/mL). Testing was performed by the JONATHAN AmpliPrep/JONATHAN TaqMan HCV Test version 2.0 ([employer] Testing performed at [facility] Current Interpretive Data was last revised on 2015. Testing performed by: [facility], [address] [place]., [address] Blood specimen (specimen) 06/19/2020 2:08 PM CDT 06/19/2020 11:27 PM CDT us Tenisha Jones MD LAB MICROBIOLOGY - [facility] AL ORDERABLES Final Result ANJUM COLLIER (SYLVIA) 1 [facility] Department [place] [address] from Last 3 Months or Most Recently Relevant to Health Maintenance [place] [place] [address] MEDICAID [facility] Advance Directives For more information, please contact: [phone] * Full Code (Latest Code Status on [...] in case of cardiopulmonary arrest Care Teams Visual Effects Artist Relationship Specialty Start Date End Date Daniel Mcqueen MD PCP - General Family Practice 08/30/22
== END 2024-12-28 11:07 | disposition home or self-care (01) ==
LOC: ANHBWCIMG 11:07
PROVIDERS: PCP Nurse Practitioner Adult Health; Visit Provider Nurse Practitioner Adult Health
DX: M25.572 Pain in left ankle and joints of left foot (principal); M79.672 Pain in left foot
CPT/HCPCS: 73610; 73620

== ENCOUNTER 2025-07-24 11:13 | Outpatient (CLI) | payer OTHER, SELFPAY ==
[2025-07-24 11:34] LABS: Hematocrit 45.7 % (37.0-47.0); Hemoglobin 15.2 g/dL (12.0-15.0); Immature Granulocyte Percent A 0.3 % (0-0.5); Lymphocytes Absolute Auto 2.11 K/mm3 (0.9-3.2); Mean Corpuscular HGB Conc 33.3 g/dl (32-36); Mean Corpuscular Hemoglobin 29.1 pg (26-34); Mean Corpuscular Volume 87.4 fl (80-100); Nucleated Red Blood Cells Absolute Auto 0.000 K/mm3 (0.0-0.012); Nucleated Red Blood Cells Perc 0.0 % (0.0-0.2); Platelet Count Result 292 k/mm3 (150-375); Red Blood Count 5.23 M/mm3 (4.2-5.4); White Blood Count 10.4 K/mm3 (4.5-10.0)
[2025-07-24 11:45] LABS: Alanine Aminotransferase 22 U/L (6-35); Albumin Level 4.8 g/dL (3.5-5.1); Alkaline Phosphatase 85 U/L (38-126); Anion Gap 7 mmol/L (4-12); Aspartate Amino Transferase 24 U/L (14-36); Bilirubin,Total 0.7 mg/dL (0.2-1.3); Blood Urea Nitrogen 8 mg/dL (7-17); Calcium 9.5 mg/dL (8.4-10.2); Carbon Dioxide 22 mmol/L (22-30); Chloride 110 mmol/L (98-107); Estimated Glomerular Filt Rate > 60; Glucose 92 mg/dL (65-110); Potassium 4.4 mmol/L (3.4-5.0); Sodium 139 mmol/L (137-145); Total Protein 7.8 g/dL (6.3-8.2)
[2025-07-24 11:46] LABS: Hemoglobin A1C 5.0 % (<5.7)
[2025-07-24 12:28] LABS: Thyroid Stimulating Hormone Reflex 0.733 uIU/mL (0.465-4.68)
--- OUTSIDE RECORDS SUMMARY | 2025-07-24 12:52 | XMS_ITS | Clinical Summary ---
Author Organization [facility] Address [address] [place] [address] Care Team Providers Care Slp Teacher Name Role Phone Angela Griffin NP Primary Care Provider [phone] Allergies Active Allergy Reactions Criticality Noted Date [...] mouth daily 30 tablet 2 10/25/19 25 Active Active Problems Problem Noted Date Diagnosed Date Numbness and tingling of lower extremity 025 Foreign body of left upper arm 09/01/2023 Gastrointestinal hemorrhage with hematemesis 03/2023 Local reaction to insect sting 06/06/2022 Change in bowel habits 07/01/2018 Overview (07/01/2018): Added automatically from request for surgery [id number] Assessment & Plan (10/27/2018 3:32 PM ARTIFICIAL CHERRY MAKER): The patient previously had constipation but since last March has been having 6 formed stools per day. There has been no bleeding. A colonoscopy is recommended to clarify the diagnosis and guide therapy. The risks, benefits, and alternatives were discussed with the patient and she agrees to proceed. Left lower quadrant pain 07/01/2018 Overview (07/01/2018): Added automatically from request for surgery [id number] Assessment & Plan (10/27/2018 3:33 PM ARTIFICIAL CHERRY MAKER): This has been associated with a change [...] Family history of Heart problems; MGM - [place] Hypertension Other 7 Family history of Hypertension; [...] on file Legal Sex Female 12:42 AM ARTIFICIAL CHERRY MAKER Gender Identity Not on file Sexual Orientation Not on file Occupation Industry Job Start Date Job End Date [employer] [facility] [employer] Not on file Not on [...] mahan, Ishan forte MD Complications:None Delivery Location:This [facility] ([facility]) Last Filed Vital Signs Vital Sign Reading Time Taken Comments Blood Pressure 127/85 08/25/2024 2:28 PM ARTIFICIAL CHERRY MAKER Pulse 97 08/25/2024 2:28 PM ARTIFICIAL CHERRY MAKER Temperature 36.9 C (98.4 F) 09/04/2023 12:52 AM ARTIFICIAL CHERRY MAKER Respiratory Rate 20 09/04/2023 3:30 AM ARTIFICIAL CHERRY MAKER Oxygen Saturation 97% 08/25/2024 2:28 PM ARTIFICIAL CHERRY MAKER Inhaled Oxygen Concentration - - Weight 79.3 kg (174 lb 12.8 oz) 08/25/2024 2:28 PM ARTIFICIAL CHERRY MAKER Height 157.5 cm (5' 2) 08/25/2024 2:28 PM ARTIFICIAL CHERRY MAKER Body Mass Index 31.97 08/25/2024 2:28 PM ARTIFICIAL CHERRY MAKER Plan of Treatment Health Maintenance Due Date Last Done Comments Cervical Cancer Screening 1999 Pneumococcal vaccine <65 (1 of 1 - PPSV23, PCV20, or PCV21) 2005 11/13/2000, 07/27/2000 Regular Well Visit/Exam 18-64 2017 Depression Screening 06/30/2019 06/30/2018 Covid-19 Vaccine (3 - 2024-2 6 season) 2025 12/16/2020, 11/20/2020 Influenza Vaccine (#1) 2025 3, 09/15/2017, 05/14/2016, Additional history exists DTaP/Tdap/Td [...] RNA PCR, quantitative (06/19/2020 2:08 PM CDT) Pathologist [facility] HCV RNA result Not Detected LUZ COLLIER (SYLVIA) Comment: Interpretive data: The quantifiable range of this assay is 15 IU/mL to 100,000,000 IU/mL (1.18 log IU/mL to 8.00 log IU/mL). Testing was performed by the JONATHAN AmpliPrep/JONATHAN TaqMan HCV Test version 2.0 ([employer] Testing performed at [facility] Current Interpretive Data was last revised on 2015. Testing performed by: [facility], [address] [place]., [address] Blood specimen (specimen) 06/19/2020 2:08 PM CDT 06/19/2020 11:27 PM CDT us Tenisha Jones MD LAB MICROBIOLOGY - GENER AL ORDERABLES Final Result ANJUM NANDO (PESHTIGO) 1 [facility] [place] [address] from Last 3 Months or Most Recently Relevant to Health Maintenance [place] [address] [place] [address] MEDICA[address] [facility] [place] [address] [place] [address] Advance Directives For more information, please contact: [phone] * Full Code (Latest Code Status on [...] in case of cardiopulmonary arrest Care Teams Slp Teacher Relationship Specialty Start Date End Date Angela Griffin NP [address] [place] [id number] PCP - General Nurse Practitioner 02/09/25
[2025-07-25 15:09] LABS: ANA by IFA Rfx Titer/Pattern Positive (.)
== END 2025-07-24 11:14 | disposition home or self-care (01) ==
LOC: ANHLAB 11:15
PROVIDERS: PCP Nurse Practitioner Adult Health; Visit Provider Anesthesiology Pain Medicine
DX: M54.51 Vertebrogenic low back pain (principal); G62.9 Polyneuropathy, unspecified; R20.2 Paresthesia of skin; M25.572 Pain in left ankle and joints of left foot; Z82.61 Family history of arthritis
CPT/HCPCS: 36415; 80053; 83036; 84443; 85025; 86038; 86430